=== PATIENT | male | born 1940 | race Caucasian/White ===

== ENCOUNTER 2018-09-09 13:47 | Inpatient (IN) | payer MEDICARE, OTHER ==
[2018-09-09] MEDS ORDERED: NS 0.9% 1000 ML* 2,700 ML IV ONE (13:56)
[2018-09-09] MEDS ORDERED: Albuterol/Ipratropium NEB.SOL* Albuterol 2.5 MG/Ipratropium 0.5 MG 3 ML INH ONE (14:24)
[2018-09-09] MEDS ORDERED: Albuterol/Ipratropium NEB.SOL* Albuterol 2.5 MG/Ipratropium 0.5 MG 3 ML ONE (14:25)
[2018-09-09 14:39] LABS: ABS Basophils 0.1 10^3/ul (0-0.2); ABS Eosinophils 0 10^3/ul (0-0.6); ABS Lymphocytes 0.4 10^3/ul (1.0-4.8); ABS Monocytes 0.4 10^3/ul (0-0.8); ABS Neutrophils 16.9 10^3/ul (1.5-7.7); ABS Nucleated RBC 0 10^3/ul; Eosinophil % 0 %; Hematocrit 35 % (42-52); Hemoglobin 11.4 g/dl (14.0-18.0); Mean Corpuscular HGB Conc 33 g/dl (31-36); Mean Corpuscular Hemoglobin 35 pg (27-31); Mean Corpuscular Volume 105 fL (80-94); Nucleated Red Blood Cells % 0; Platelet Count 437 10^3/ul (150-450); Red Blood Count 3.31 10^6/ul (4.00-5.40); Red Cell Distribution Width 15 % (10.5-15); White Blood Count 17.8 10^3/ul (3.5-10.8)
--- NOTE | 2018-09-09 14:40 | ED ---
Respiratory - HPI Summary HPI Summary: The patient is a 78 y/o M presenting to [facility] accompanied by with a chief complaint of upper respiratory symptoms for the last two weeks. He had dx of PNA and was being treated with abx, but he is unsure what one. Over the past 6 months, he also noticed that he gained about 15lbs, leading to bilateral edema in his ankles. He reports that he has been very short of breath, and he is not on O2 at home. He additionally c/o warm to touch skin, rhinorrhea, chest congestion, nonproductive cough, decreased appetite, and difficulty sleeping. He denies recorded fever and chills. He has hx of Afib, but he denies CHF or water on lungs. He takes a baby Aspirin daily. He also reports that when he was at the [place] recently, his blood work revealed that he is anemic. - History of Current Complaint Chief Complaint: EDShortnessOfBreath Stated Complaint: SOB Time Seen by Provider: 09/09/18 13:55 Hx Obtained From: Patient Onset/Duration: Lasting Weeks - two, Still Present Timing: Constant Initial Severity: Moderate Current Severity: Moderate Pain Intensity: 0 Character: Cough (Nonproductive) Sputum Amount: None Aggravating Factor(s): Nothing Alleviating Factor(s): Nothing Associated Signs and Symptoms: Fever - hot to touch but fever not recorded, SOB , Chest Pain with Cough, Nasal Congestion, Edema - bilateral ankles - Allergy/Home Medications Allergies/Adverse Reactions: Allergies Allergy/AdvReac Type Severity Reaction Status Date / Time codeine Allergy Intermediate itchy body Verified 09/09/18 16:21 rash Home Medications: Home Medications Amoxicillin/Clavulanate TAB* [Augmentin TAB 875*] 875 mg PO BID 09/09/18 [ History Confirmed 09/09/18] Ascorbic Acid TAB* [Vitamin C TAB*] 500 mg PO DAILY 09/09/18 [History Confirmed 09/09/18] Aspirin EC TAB* [Ecotrin EC Low Dose 81 MG*] 81 mg PO DAILY 09/09/18 [History Confirmed 09/09/18] Atenolol TAB* [Tenormin TAB* 25 MG] 25 mg PO DAILY 09/09/18 [History Confirmed 09/09/18] Carbamide Peroxide 6.5% OTIC* [DEBROX 6.5% Otic*] 5 drop BOTH EARS BID PRN 09/09 [History Confirmed 09/09/18] Cholecalciferol TAB* [Vitamin D TAB*] 3,000 units PO DAILY 09/09/18 [History Confirmed 09/09/18] Finasteride TAB* [Proscar TAB*] 5 mg PO DAILY 09/09/18 [History Confirmed ] Multivitamins/Minerals TAB* [Theragran/minerals TAB*] 1 tab PO DAILY 09/09/18 [ History Confirmed 09/09/18] Naproxen TAB* [Naprosyn 250 mg TAB*] 500 mg PO BID PRN 09/09/18 [History Confirmed 09/09/18] Simvastatin TAB(NF) [Zocor(NF)] 10 mg PO BEDTIME 09/09/18 [History Confirmed 06/18] Terazosin CAP* [Hytrin CAP*] 6 mg PO BEDTIME 09/09/18 [History Confirmed ] PMH/Surg Hx/FS Hx/Imm Hx Endocrine/Hematology History: Denies: Hx Diabetes Cardiovascular History: Reports: Other Cardiovascular Problems/Disorders - IRREGULAR HEARTBEAT History: Reports: Other Problems/Disorders - ENLARGE PROSTATE Musculoskeletal History: Reports: Hx Arthritis Sensory History: Reports: Hx Cataracts - BILATERAL, Hx Contacts or Glasses - GLASSES, Hx Glaucoma - BILATERAL Denies: Hx Hearing Aid Opthamlomology History: Reports: Hx Cataracts - BILATERAL, Hx Contacts or Glasses - GLASSES, Hx Glaucoma - BILATERAL - Surgical History Surgery Procedure, Year, and Place: 2006 [place] [facility] [place] Anesthesia Reactions: No Infectious Disease History: No Infectious Disease History: Denies: Traveled Outside the [place] in Last 30 Days - Family History Known Family History: Positive: Cardiac Disease - Social History Alcohol Use: None Hx Substance Use: No Substance Use Type: Reports: None Hx Tobacco Use: Yes Smoking Status (MU): Former Smoker Type: Cigarettes Amount Used/How Often: 5 CIGARETTES PER DAY, WHEN HE QUIT Have You Smoked in the Last Year: Yes Review of Systems Positive: Fever - hot to touch but temp not taken, Other - weight gain of 15lbs over last 6 months. Negative: Chills Negative: Erythema Positive: Nasal Discharge. Negative: Sore Throat Negative: Chest Pain Positive: Shortness Of Breath, Cough - nonproductive, Other - chest congestion Positive: Other - decreased appetite. Negative: Abdominal Pain, Vomiting, Nausea Negative: dysuria, hematuria Positive: Edema - bilateral ankles. Negative: Myalgia Negative: Rash Neurological: Other - POSITIVE: difficulty sleeping;NEGATIVE: dizziness All Other Systems Reviewed And Are Negative: Yes Physical Exam - Summary Physical Exam Summary: Constitutional: Well-developed, Well-nourished, Alert. (-) Distressed Skin: Warm, Dry HENT: Normocephalic; Atraumatic Eyes: Conjunctiva normal Neck: Musculoskeletal ROM normal neck. (-) JVD, (-) Stridor, (-) Tracheal deviation Cardio: Rhythm regular, rate normal, Heart sounds normal; Intact distal pulses; The pedal pulses are 2+ and symmetric. Radial pulses are 2+ and symmetric. (-) Murmur Pulmonary/Chest wall: Effort normal. (-) Respiratory distress, (-) Wheezes, (+) Rales, Diminished breath sounds Abd: Soft, (-) epigastric tenderness, (-) Distension, (-) Guarding, (-) Rebound Musculoskeletal: 1+ Pitting edema in bilateral ankles Lymph: (-) Cervical adenopathy Neuro: Alert, Oriented x3 Psych: Mood and affect Normal Triage Information Reviewed: Yes Vital Signs On Initial Exam: Initial Vitals Temp Pulse Resp BP Pulse Ox 98.6 F 116 20 145/64 96 09/09/18 13:51 09/09/18 13:51 09/09/18 13:51 09/09/18 13:51 09/09/18 13:51 Vital Signs Reviewed: Yes Diagnostics - Vital Signs Vital Signs Temp Pulse Resp BP Pulse Ox 09/09/18 14:04 128 127/82 98 09/09/18 14:03 124 98 09/09/18 13:51 98.6 F 116 20 145/64 96 - Laboratory Result Diagrams: 09/09/18 14:27 09/09/18 14:27 Lab Statement: Any lab studies that have been ordered have been reviewed, and results considered in the medical decision making process. - Radiology CXR Radiology Interpretation Completed By: Radiologist Summary of Radiographic Findings: Appearance of the chest x-rays is most consistent with pulmonary edema, likely with bibasilar pleural effusions. ED physician has reviewed this report. - EKG 1413 Cardiac Rate: Other Rate - 122 BPM EKG Rhythm: Atrial Fibrillation Summary of EKG Findings: No STEMI. Re-Evaluation - Re-Evaluation First Eval Re-Evaluation Time: 15:18 Change: Improved Comment: He is not currently experiencing any chest pain. Disposition - Course Course Of Treatment: The patient is a 78 y/o M presenting to [facility] accompanied by with a chief complaint of upper respiratory symptoms for the last two weeks. He had dx of PNA and was being treated with abx, but he is unsure what one. Over the past 6 months, he also noticed that he gained about 15lbs, leading to bilateral edema in his ankles. He reports that he has been very short of breath, and he is not on O2 at home. He additionally c/o warm to touch skin, rhinorrhea, chest congestion, nonproductive cough, decreased appetite, and difficulty sleeping. He denies recorded fever and chills. He has hx of Afib , but he denies CHF or water on lungs. He takes a baby Aspirin daily. He also reports that when he was at the [place] recently, his blood work revealed that he is anemic. Upon physical exam, the patient exhibits rales, diminished breath sounds , and +1 pitting edema bilateral ankles. I spoke with Dr. Shepherd, cardiology, who suggests that the patient be administered Lasix, Aspirin, and in hospital services. In the ED course, the patient was also administered Ns, NTG, Lopressor , Duoneb, and Heparin. Blood work reveals no significant changes. EKG reveals Afib. CXR reveals pulmonary edema with bibasilar pleural effusions. Upon re- eval at 1518, the patient is not experiencing any CP. This allows me to suspect that the symptoms are perhaps PNA related mediated CHF. I consulted with Dr. French, hospitalist, who accepts the patient for admission at 1500. He is diagnosed with CHF and acute coronary syndrome. Patient agrees with this plan and understands the need for admission at this time. - Diagnoses Provider Diagnoses: CHF (congestive heart failure), Acute coronary syndrome - Physician Notifications Discussed Care Of Patient With: Wade French - hospitalist Time Discussed With Above Provider: 15:00 Instructed by Provider To: Other - I spoke with Dr. French, who accepts the patient for admission. Discharge - Sign-Out/Discharge Documenting (check all that apply): Patient Departure - Patient will [place] [facility] [place] further care by Dr. French. - Discharge Plan Condition: Stable Disposition: ADMITTED TO [facility] - Billing Disposition and Condition Condition: STABLE Disposition: Admitted to [facility] - Attestation Statements Document Initiated by Julissae: Yes Documenting Scribe: Judy Jean Provider For Whom Chris is Documenting (Include Credential): Dr. Carlos Grimes MD Scribe Attestation: Judy Diehl scribed for Dr. Carlos Grimes MD on 09/09/18 at 2114. Scribe Documentation Reviewed: Yes Provider Attestation: The documentation as recorded by the Judy sow accurately reflects the service I personally performed and the decisions made by me, Dr. Carlos Grimes MD Status of Scribe Document: Viewed
[2018-09-09 14:50] LABS: Activated Partial Thrombo Time 27.1 seconds (26.0-36.3); INR 1.21 (0.77-1.02)
[2018-09-09 14:58] LABS: Albumin 4.1 g/dL (3.2-5.2); Albumin/Globulin Ratio 1.5 (1-3); BUN/Creatinine Ratio 33.3 (8-20); Calcium 9.1 mg/dL (8.6-10.3); EGFR Non-African American 44.5 (>60); Globulin 2.8 g/dL (2-4); Potassium 4.7 mmol/L (3.5-5.0); Total Bilirubin 0.8 mg/dL (0.2-1.0); Total Protein 6.9 g/dL (6.4-8.9)
[2018-09-09] MEDS ORDERED: Aspirin 81 mg CHEW TAB* 81 MG TAB.CHEW PO ONE (15:06)
[2018-09-09] MEDS ORDERED: Metoprolol Tartrate IV* 1 MG/ML 5 ML VIAL IV ONE (15:06)
[2018-09-09] MEDS ORDERED: Nitroglycerin 0.2 MG/HR PATCH* (5 MG) TRANSDERM ONE (15:06)
[2018-09-09] MEDS ORDERED: Furosemide IV* 10 MG/ML VIAL (40 MG) IV SLOW PU ONE (15:23)
[2018-09-09] MEDS ORDERED: Furosemide IV* 10 MG/ML VIAL (40 MG) ONE (15:24)
[2018-09-09] MEDS ORDERED: Heparin DRIP 25,000 UNITS(*) 25,000 UNITS/500 ML BAG IV SCH (16:15)
[2018-09-09] MEDS ORDERED: Metoprolol Tartrate TAB* 25 MG PO ONE (16:50)
[2018-09-09] MEDS ORDERED: Diltiazem IV VIAL* 125 MG in NS 0.9% 100 ML* 100 ML IV SCH (17:30)
[2018-09-09] MEDS ORDERED: NS 0.9% 100 ML* 100 ML ONE (17:39)
[2018-09-09] MEDS: Heparin DRIP 25,000 UNITS(*) 25,000 UNITS/500 ML BAG IV SCH (18:12)
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
[2018-09-09] MEDS: Terazosin CAP* 5 MG PO SCH (20:18)
[2018-09-09] MEDS: Furosemide IV* 10 MG/ML VIAL (40 MG) IV SCH ×2 (20:18→20:31)
[2018-09-09] MEDS: Terazosin CAP* 1 MG PO SCH (20:18)
[2018-09-09] MEDS: Metoprolol Succinate XL TAB* 25 MG PO SCH (20:18)
[2018-09-09] MEDS: Atorvastatin* 80 MG TAB PO SCH (20:18)
[2018-09-09] MEDS ORDERED: Atorvastatin* 10 MG TAB PO SCH (21:00)
[2018-09-09] MEDS ORDERED: Furosemide IV* 10 MG/ML VIAL (40 MG) IV SCH (21:00)
[2018-09-09 21:24] LABS: Urine Appearance Clear; Urine Bacteria Absent (Absent); Urine Bilirubin Negative (Negative); Urine Blood Negative (Negative); Urine Color Yellow; Urine Glucose Negative (Negative); Urine Ketones Negative (Negative); Urine Nitrite Negative (Negative); Urine Protein Negative (Negative); Urine Red Blood Cell Trace(0-2/hpf) (Absent); Urine Specific Gravity 1.011 (1.010-1.030); Urine Urobilinogen Negative (Negative); Urine White Blood Cell Trace(0-5/hpf) (Absent)
[2018-09-10] MEDS ORDERED: Heparin VIAL(*) 5000 UNITS/ML VIAL (FIVE THOUSAND) ONE (01:02)
[2018-09-10] MEDS: Heparin VIAL(*) 5000 UNITS/ML VIAL (FIVE THOUSAND) IV PRN ×2 (01:05→14:58)
[2018-09-10 06:55] LABS: Hematocrit 31 % (42-52); Mean Corpuscular HGB Conc 33 g/dl (31-36); Mean Corpuscular Hemoglobin 34 pg (27-31); Mean Corpuscular Volume 104 fL (80-94); Mean Platelet Volume 7.6 fL (7.4-10.4); Platelet Count 374 10^3/ul (150-450); Red Blood Count 2.94 10^6/ul (4.00-5.40); Red Cell Distribution Width 15 % (10.5-15); White Blood Count 17.9 10^3/ul (3.5-10.8)
[2018-09-10 07:03] LABS: ALT 28 U/L (7-52); AST 56 U/L (13-39); Albumin 3.1 g/dL (3.2-5.2); Albumin/Globulin Ratio 1.1 (1-3); Alkaline Phosphatase 71 U/L (34-104); Anion Gap 7 mmol/L (2-11); BUN/Creatinine Ratio 36.7 (8-20); Blood Urea Nitrogen 54 mg/dL (6-24); CO2 Carbon Dioxide 25 mmol/L (22-32); Calcium 8.1 mg/dL (8.6-10.3); Chloride 108 mmol/L (101-111); Cholesterol 115 mg/dL; EGFR Non-African American 46.6 (>60); Globulin 2.7 g/dL (2-4); Glucose 139 mg/dL (70-100); HDL Cholesterol 36.5 mg/dL; LDL Cholesterol 64 mg/dL; Magnesium 2.4 mg/dL (1.9-2.7); Sodium 140 mmol/L (135-145); Total Protein 5.8 g/dL (6.4-8.9); Triglycerides 72 mg/dL
[2018-09-10 07:05] LABS: INR 1.21 (0.77-1.02)
[2018-09-10 07:22] LABS: Activated Partial Thrombo Time 135.1 seconds (26.0-36.3)
[2018-09-10 07:36] LABS: TSH (Thyroid Stimulating Horm) 1.33 mcIU/mL (0.34-5.60)
[2018-09-10 07:48] LABS: Folate > 20.00 ng/mL (>3.99)
[2018-09-10] MEDS ORDERED: Perflutren Lipid Microsphere* 3 ML VIAL ONE (08:23)
[2018-09-10] MEDS ORDERED: Nitroglycerin 0.2 MG/HR PATCH* (5 MG) TRANSDERM SCH (09:00)
[2018-09-10] MEDS ORDERED: Atenolol TAB* 25 MG PO SCH (09:00)
[2018-09-10] MEDS: Metoprolol Succinate XL TAB* 25 MG PO SCH ×2 (09:11→20:05)
[2018-09-10] MEDS: Finasteride TAB* 5 MG PO SCH (09:11)
[2018-09-10] MEDS: Aspirin TAB* 325 MG PO SCH (09:11)
[2018-09-10] MEDS: Furosemide IV* 10 MG/ML VIAL (40 MG) IV SCH ×2 (10:26→20:05)
--- NOTE | 2018-09-10 11:38 | ECHO ---
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 fib, HLD, former smoker Technical Comments: The study quality is fair. The study is technically limited due to patient body habitus. The study is technically limited due to the patient's smoking history. Completed at 0915. Left Ventricle: The left ventricular chamber size is normal. Mild concentric left ventricular hypertrophy is observed. There are multiple regional wall motion abnormalities. There is severely decreased left ventricular systolic function. The estimated ejection fraction is 25-30%. Abnormal left ventricular diastolic function is observed. The mid anterior, mid anterolateral, mid inferolateral, mid inferoseptal, and apical anterior wall segments are hypokinetic (score 2). The apical septal, apical lateral, and apical inferior wall segments are akinetic (score 3). Overall wallmotion score index is 2.10 Left Atrium: The left atrium is moderate to severely dilated. Right Ventricle: The right ventricular chamber size and systolic function are within normal limits. Right Atrium: The right atrium is moderately dilated. Aortic Valve: The aortic valve structure is not well visualized. The aortic valve leaflets are mildly thickened. There is evidence of aortic sclerosis without stenosis. There is no evidence of aortic regurgitation. Mitral Valve: Mild mitral annular calcification present. The mitral valve leaflets are mildly thickened. There is moderate mitral regurgitation. that is functional/secondary There is no evidence of mitral stenosis. Tricuspid Valve: The tricuspid valve leaflets are normal. There is mild tricuspid regurgitation. There is evidence of moderate pulmonary hypertension. There is no tricuspid stenosis. Pulmonic Valve: The pulmonic valve structure is not well visualized. There is no evidence of pulmonic regurgitation. There is no pulmonic stenosis. Pericardium: There is no significant pericardial effusion. A left pleural effusion is present. Aorta: There is mild dilatation of the ascending aorta. The aortic arch is not well visualized. There is no dilation of the aortic root. Pulmonary Artery: The main pulmonary artery is not well visualized. Venous: The inferior vena cava is dilated. There is no change in the dimension of the inferior vena cava with respiration consistent with markedly increased right atrial pressure. Contrast: Definity was used to optimize study. A total of 3 ml of diluted Definity was given IV to enhance endocardial border definition. Conclusions The left ventricular chamber size is normal. Mild concentric left ventricular hypertrophy is observed. There is severely decreased left ventricular systolic function. There are multiple regional wall motion abnormalities as described within report The estimated ejection fraction is 25-30% best appreciated on definity images The left atrium is moderate to severely dilated. The right ventricular chamber size and systolic function are within normal limits. There is moderate mitral regurgitation that is functional/secondary There is evidence of moderate pulmonary hypertension. A pleural effusion is present. Definity was used to optimize study. None prior available for comparison at time of interpretation Measurements Name Value Normal Range RVIDd (AP) 2D 3.7 cm (0.9 - 2.6) RVDdMajor (2D) 3.5 cm (2.2 - 4.4) RAd ISD 4CH 6.7 cm (3.4 - 4.9) RA (A4C)W 4.4 cm (2.9 - 4.6) IVSd (2D) 1.2 cm (0.6 - 1) LVPWd (2D) 1.2 cm (0.6 - 1) LVIDd (2D) 5.3 cm (3.6 - 5.4) LVIDs (2D) 4.1 cm - LV FS (2D) 23 % (25 - 45) Aortic Annulus 2 cm (1.4 - 2.6) Ao root diameter (2D) 3.4 cm (2.1 - 3.5) Ascending Ao 3.6 cm (2.1 - 3.4) LA dimension (AP) 2D 5.4 cm (2.3 - 3.8) LAd ISD 4CH 6.7 cm (2.9 - 5.3) LA ISD 4CH W 4.8 cm (2.5 - 4.5) Name Value Normal Range LA ESV BP (A/L) index 44.6 ml/m2 - Name Value Normal Range MV E-wave Vmax 1 m/sec - MV deceleration time 150 msec - LV septal e' Vmax 0.05 m/sec - LV lateral e' Vmax 0.08 m/sec - LV E:e' septal ratio 20 ratio - LV E:e' lateral ratio 12.5 ratio - Name Value Normal Range AV Vmax 0.98 m/sec - AV VTI 16.2 cm - AV peak gradient 4 mmHg - AV mean gradient 2 mmHg - LVOT Vmax 0.78 m/sec - LVOT VTI 13.3 cm - LVOT peak gradient 2 mmHg - LVOT mean gradient 1 mmHg - Name Value Normal Range TR Vmax 3.3 m/sec - TR peak gradient 44 mmHg - RAP 15 mmHg - RVSP 59 mmHg - IVC diameter 2.4 cm - Name Value Normal Range PV Vmax 0.49 m/sec - Wallmotion BAS Normal BA Not Seen BAL Not Seen NATALIE Not Seen BI Not Seen BIS Not Seen MAS Normal MA Hypokinetic MAL Hypokinetic MIL Hypokinetic MT Not Seen MIS Hypokinetic Akinetic AA Hypokinetic AL Akinetic AI Akinetic APEX Akinetic
[2018-09-10] MEDS ORDERED: Furosemide IV* 10 MG/ML VIAL (40 MG) IV ONE (12:12)
--- NOTE | 2018-09-10 12:41 | PN ---
Subjective Date of Service: 09/10/18 Interval History: f/u NH, systolic HF, ICM Remains markedly volume overloaded Tachypneic with conversation, no symptoms at rest suboptimal UOP States he has known anemia, awaiting [facility] Medications Active Medications: Aspirin (Aspirin Tab*) 325 mg PO DAILY [facility] Last Admin: 09/10/18 09:11 Dose: 325 mg Atorvastatin Calcium (Lipitor*) 80 mg PO BEDTIME [facility] Last Admin: 09/09/18 20:18 Dose: 80 mg Finasteride (Proscar Tab*) 5 mg PO DAILY [facility] Last Admin: 09/10/18 09:11 Dose: 5 mg Furosemide (Lasix Iv*) 40 mg IV BID [facility] Last Admin: 09/10/18 10:26 Dose: 40 mg Heparin Sodium (Porcine) (Heparin Vial(*)) 0 units IV .BOLUS PRN PRN Reason: HEPARIN DRIP PROTOCOL Last Admin: 09/10/18 01:05 Dose: 4,000 units Heparin Sodium/Dextrose (Heparin Drip 25,000 Units(*)) 25,000 units in 500 mls @ 0 mls/hr IV PER RATE [facility]; Protocol Last Admin: 09/09/18 18:12 Dose: 20 mls/hr Isosorbide Dinitrate (Isordil Tab*) 10 mg PO TID [facility] Metoprolol Succinate (Toprol Xl Tab*) 25 mg PO BID [facility] Last Admin: 09/10/18 09:11 Dose: 25 mg Nicotine Polacrilex (Nicotine Lozenge*) 2 mg MT Q2H PRN PRN Reason: CRAVINGS Terazosin HCl (Hytrin Cap*) 1 mg PO BEDTIME [facility] Last Admin: 09/09/18 20:18 Dose: 1 mg Terazosin HCl (Hytrin Cap*) 5 mg PO BEDTIME [facility] Last Admin: 09/09/18 20:18 Dose: 5 mg Objective Vital Signs: Temp Pulse Resp BP Pulse Ox 97.9 F 98 23 112/81 98 09/10/18 11:37 09/10/18 12:01 09/10/18 12:01 09/10/18 12:00 09/10/18 12:01 Oxygen Devices in Use Now: Nasal Cannula Appearance: not toxic appearing, conversant Ears/Nose/Mouth/Throat: Clear Oropharnyx Neck: Trachea Midline, - - uncertain jvp Respiratory: - - mild increased work of breathing and tachypnea, decreased bs bases Cardiovascular: - - irregularly irregular, tachcyardic, 1+ systolic murmur apex , uncertain jvp Abdominal: NL Sounds; No Tenderness; No Distention Extremities: No Clubbing, Cyanosis, - - 2+ pitting edema legs Skin: No Rash or Ulcers Neurological: Alert and Oriented x 3 Laboratory Results: 09/10/18 06:30 09/10/18 06:30 INR (Anticoag Therapy) 1.21 (0.77-1.02) H 09/10/18 06:30 APTT 135.1 seconds (26.0-36.3) H* 09/10/18 06:30 Total Bilirubin 0.60 mg/dL (0.2-1.0) 09/10/18 06:30 AST 56 U/L (13-39) H 09/10/18 06:30 ALT 28 U/L (7-52) 09/10/18 06:30 Alkaline Phosphatase 71 U/L (34-104) 09/10/18 06:30 B-Natriuretic Peptide 1285 pg/mL (<=100) H 09/09/18 14:27 Total Protein 5.8 g/dL (6.4-8.9) L 09/10/18 06:30 Albumin 3.1 g/dL (3.2-5.2) L 09/10/18 06:30 Globulin 2.7 g/dL (2-4) 09/10/18 06:30 Albumin/Globulin Ratio 1.1 (1-3) 09/10/18 06:30 Triglycerides 72 mg/dL 09/10/18 06:30 Cholesterol 115 mg/dL 09/10/18 06:30 LDL Cholesterol 64 mg/dL 09/10/18 06:30 HDL Cholesterol 36.5 mg/dL 09/10/18 06:30 TSH 1.33 mcIU/mL (0.34-5.60) 09/10/18 06:30 09/09/18 09/09/18 09/10/18 14:27 19:10 06:30 Troponin I 5.33 H* 6.24 H* 8.06 H* b12, folic acid normal hgba1c < 4 Diagnostic Imaging: cxr 09/09/2018: pulmonary edema, b/l pleural effusions Renal US 09/10/2018. 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 NSTEMI - pain free 3. Atrial fibrillation, chronic 4. Renal insufficiency, uncertain acute or chronic 5. Macrocytic anemia - Continue aspirin daily - Continue heparin gtt - Hold off on second anti-platelet for now - Continue intensive dose statin - Continue IV diuresis (needs much more - another 40 mg IV x 1 ordered now), check and replace electrolytes - Continue toprol 25 mg po bid, HR should improve with better diuresis - Change topical nitrates to isordil 10 mg po tid (ordered) - Hold off on AceI/ARB for now - [facility] - Pending above evaluation and further medical stabilization and improvement of heart failure patient would likely eventually benefit from cardiac catheterization with intent for revascularization Thank you for allowing me to participate in the cardiovascular care of this patient. Please do not hesitate to contact me with questions or concerns.
[2018-09-10] MEDS: NICOTINE 4 MG MT PRN (13:33)
[2018-09-10] MEDS: Isosorbide Dinitrate TAB* 10 MG PO SCH ×2 (13:33→20:05)
[2018-09-10] MEDS ORDERED: Digoxin IV* 0.5 MG/2 ML AMP (0.25 MG/ML) IV SLOW PU ONE (15:13)
--- NOTE | 2018-09-10 15:51 | PN ---
Subjective Date of Service: 09/10/18 Interval History: Pt seen and examined. Meds and labs reviewed. CC: Soft tissue discolored mass cephalad to IV site ROS: Denied HU/dizziness, F/C, N/V, CP, SOB, increased cough, sputum production , abd pain, diarrhea, constipation, dysuria, myalgias, arthralgias, throat pain , and new skin lesions. The rest of the 14 point ROS are unremarkable. PHYSICAL EXAM: GEN APPEARANCE: Awake, not in acute distress HEENT: NC/AT, PERRLA, moist oral mucosa, (-) throat erythema NECK: Soft, supple, (-) cervical LAD, (-)JVD HEART: S1S2 WNL, RRR, No MRG CHEST: CTA, BL, GAE, No W/R/R ABD: Soft, ND/NT, NABS 4x Q EXT: No C/C/E SKIN: Warm to touch PSYCH: No active psychosis, hallucinations, depression, SI/HI Objective Active Medications: Aspirin (Aspirin Tab*) 325 mg PO DAILY [facility] Last Admin: 09/10/18 09:11 Dose: 325 mg Atorvastatin Calcium (Lipitor*) 80 mg PO BEDTIME [facility] Last Admin: 09/09/18 20:18 Dose: 80 mg Finasteride (Proscar Tab*) 5 mg PO DAILY [facility] Last Admin: 09/10/18 09:11 Dose: 5 mg Furosemide (Lasix Iv*) 40 mg IV BID [facility] Last Admin: 09/10/18 10:26 Dose: 40 mg Heparin Sodium (Porcine) (Heparin Vial(*)) 0 units IV .BOLUS PRN PRN Reason: HEPARIN DRIP PROTOCOL Last Admin: 09/10/18 14:58 Dose: 2,000 units Heparin Sodium/Dextrose (Heparin Drip 25,000 Units(*)) 25,000 units in 500 mls @ 0 mls/hr IV PER RATE [facility]; Protocol Last Admin: 09/09/18 18:12 Dose: 20 mls/hr Isosorbide Dinitrate (Isordil Tab*) 10 mg PO TID [facility] Last Admin: 09/10/18 13:33 Dose: 10 mg Metoprolol Succinate (Toprol Xl Tab*) 25 mg PO BID [facility] Last Admin: 09/10/18 09:11 Dose: 25 mg Nicotine Polacrilex (Nicotine Lozenge*) 2 mg MT Q2H PRN PRN Reason: CRAVINGS Last Admin: 09/10/18 13:33 Dose: 2 mg Terazosin HCl (Hytrin Cap*) 1 mg PO BEDTIME [facility] Last Admin: 09/09/18 20:18 Dose: 1 mg Terazosin HCl (Hytrin Cap*) 5 mg PO BEDTIME [facility] Last Admin: 09/09/18 20:18 Dose: 5 mg Vital Signs - 8 hr 09/10/18 09/10/18 09/10/18 07:48 08:00 08:01 Temperature 97.6 F Pulse Rate 102 94 Respiratory 20 23 Rate Blood Pressure 109/78 (mmHg) O2 Sat by Pulse 98 97 98 Oximetry 09/10/18 09/10/18 09/10/18 08:30 09:00 09:01 Temperature Pulse Rate 102 110 109 Respiratory 19 20 19 Rate Blood Pressure 120/70 108/82 (mmHg) O2 Sat by Pulse 97 98 99 Oximetry 09/10/18 09/10/18 09/10/18 10:00 10:56 11:00 Temperature Pulse Rate 101 124 Respiratory 22 18 17 Rate Blood Pressure (mmHg) O2 Sat by Pulse 97 97 Oximetry 09/10/18 09/10/18 09/10/18 11:01 11:30 11:37 Temperature 97.9 F Pulse Rate 119 Respiratory 21 18 Rate Blood Pressure 123/78 118/73 (mmHg) O2 Sat by Pulse 96 Oximetry 09/10/18 09/10/18 09/10/18 12:00 12:01 12:30 Temperature Pulse Rate 103 98 115 Respiratory 36 23 21 Rate Blood Pressure 112/81 122/80 (mmHg) O2 Sat by Pulse 98 98 92 Oximetry 09/10/18 09/10/18 09/10/18 13:00 13:01 13:30 Temperature Pulse Rate 104 102 115 Respiratory 41 27 28 Rate Blood Pressure 110/72 115/77 (mmHg) O2 Sat by Pulse 93 93 98 Oximetry 09/10/18 09/10/18 09/10/18 14:00 14:01 14:30 Temperature Pulse Rate 143 108 106 Respiratory 30 32 26 Rate Blood Pressure 107/70 96/70 (mmHg) O2 Sat by Pulse 85 97 97 Oximetry 09/10/18 09/10/18 09/10/18 15:00 15:01 15:42 Temperature Pulse Rate 107 114 114 Respiratory 33 23 Rate Blood Pressure 118/85 (mmHg) O2 Sat by Pulse 99 97 Oximetry Oxygen Devices in Use Now: Nasal Cannula Result Diagrams: 09/10/18 06:30 09/10/18 06:30 Microbiology and Other Data: Microbiology 09/09/18 14:24 Aerobic Blood Culture - Preliminary Blood Venous No Growth Day 1 09/09/18 14:23 Blood Culture - Preliminary Blood Venous No Growth Day 1 09/09/18 18:20 Nasal Screen MRSA (PCR) - Final Nasal Mrsa Not Detected 09/09/18 14:27 Influenza Types A,B Antigen - Final Nasal Specimen received for Influenza A/B Molecular testing Assess/Plan/Problems-Billing Assessment: - Patient Problems (1) NSTEMI (non-ST elevated myocardial infarction) Current Visit: Yes Status: Acute Code(s): I21.4 - NON-ST ELEVATION (NSTEMI) MYOCARDIAL INFARCTION SNOMED Code(s): 06869082 Comment: -Continue ASA, heparin gtt, statins, and Toprol -Now on Isordil -Hold off on ACEI for now; likely prescribe prior to D/C given EF 25-30%; will await further guidance from Cards - [facility]waiting [facility] - Pending above evaluation and further medical stabilization and improvement of heart failure patient would likely eventually benefit from cardiac catheterization with intent for revascularization (2) CHF exacerbation Current Visit: Yes Status: Acute Code(s): I50.9 - HEART FAILURE, UNSPECIFIED SNOMED Code(s): 58162686 Comment: -Both systolic and diastolic dysfunction -Continue Lasix -Pt still requires 3L NC and does not have O2 at home -Continue heart healthy diet -Will add low sodium diet to above -ABG not suggestive of obstructive disease despite significant smoking history -CXR consistent w/CHF (3) A-fib Current Visit: Yes Status: Acute Code(s): I48.91 - UNSPECIFIED ATRIAL FIBRILLATION SNOMED Code(s): 31408283 Comment: #A. fib w/RVR -Continue Metoprolol -Pt on Heparin gtt (4) Superficial venous thrombosis of arm Current Visit: Yes Status: Acute Code(s): I82.619 - ACUTE EMBOLISM AND THROMBOSIS OF SUPERFIC VN UNSP UP EXTREM SNOMED Code(s): 824237932 Comment: -Located in cephalic vein despite heparin gtt -Likely from thrombophlebitis due to IV -IV removed and for warm compress -Given full anticoagulation data for such cases is equivocal, will check for Doppler U/S to eval for DVT, however, given pt has CHADS-vasc = 3, will likely need DOACs/PO anticoagulation on D/C (5) BPH (benign prostatic hyperplasia) Current Visit: Yes Status: Acute Code(s): N40.0 - BENIGN PROSTATIC HYPERPLASIA WITHOUT LOWER URINRY TRACT SYMP SNOMED Code(s): 337546508 Comment: -Continue Finasteride and Terazosin (6) DVT prophylaxis Current Visit: Yes Status: Acute Code(s): ATK8763 - SNOMED Code(s): 833620272 Comment: -As above -On Heparin gtt Status and Disposition: -As above
[2018-09-10] MEDS: Heparin DRIP 25,000 UNITS(*) 25,000 UNITS/500 ML BAG IV SCH (17:24)
[2018-09-10] MEDS: Terazosin CAP* 1 MG PO SCH (20:05)
[2018-09-10] MEDS: Terazosin CAP* 5 MG PO SCH (20:05)
[2018-09-10] MEDS: Atorvastatin* 80 MG TAB PO SCH (20:05)
[2018-09-10] MEDS ORDERED: Nitro Patch/OINT Remove PATCH OFF SCH (21:00)
[2018-09-10] MEDS ORDERED: Heparin VIAL(*) 5000 UNITS/ML VIAL (FIVE THOUSAND) IV PRN (21:29)
[2018-09-11 05:53] LABS: Hematocrit 29 % (42-52); Hemoglobin 9.7 g/dl (14.0-18.0); Mean Corpuscular HGB Conc 33 g/dl (31-36); Mean Corpuscular Hemoglobin 34 pg (27-31); Mean Corpuscular Volume 103 fL (80-94); Mean Platelet Volume 7.1 fL (7.4-10.4); Platelet Count 322 10^3/ul (150-450); Red Blood Count 2.82 10^6/ul (4.00-5.40); Red Cell Distribution Width 14 % (10.5-15); White Blood Count 13.1 10^3/ul (3.5-10.8)
[2018-09-11 06:11] LABS: Albumin 3.1 g/dL (3.2-5.2); Albumin/Globulin Ratio 1.1 (1-3); BUN/Creatinine Ratio 43.4 (8-20); Calcium 8.2 mg/dL (8.6-10.3); EGFR Non-African American 48.1 (>60); Globulin 2.7 g/dL (2-4); Magnesium 2.3 mg/dL (1.9-2.7); Phosphorus 4.4 mg/dL (2.5-5.0); Potassium 3.7 mmol/L (3.5-5.0); Total Bilirubin 0.9 mg/dL (0.2-1.0); Total Protein 5.8 g/dL (6.4-8.9)
[2018-09-11] MEDS: Finasteride TAB* 5 MG PO SCH (08:05)
[2018-09-11] MEDS: Aspirin TAB* 325 MG PO SCH (08:05)
[2018-09-11] MEDS: Furosemide IV* 10 MG/ML VIAL (40 MG) IV SCH ×2 (08:05→20:22)
[2018-09-11] MEDS: Isosorbide Dinitrate TAB* 10 MG PO SCH ×3 (08:05→20:22)
[2018-09-11] MEDS: Metoprolol Succinate XL TAB* 25 MG PO SCH (08:05)
[2018-09-11] MEDS ORDERED: Digoxin IV* 0.5 MG/2 ML AMP (0.25 MG/ML) IV SLOW PU ONE (10:00)
[2018-09-11] MEDS ORDERED: Potassium Chlor TAB* 20 MEQ TAB.ER PO ONE ×2 (10:19→10:23)
[2018-09-11] MEDS ORDERED: Digoxin IV* 0.5 MG/2 ML AMP (0.25 MG/ML) IV ONE (10:23)
[2018-09-11] MEDS ORDERED: Furosemide IV* 10 MG/ML VIAL (40 MG) IV ONE ×2 (10:23→11:55)
[2018-09-11] MEDS: NICOTINE 4 MG MT PRN (11:43)
--- NOTE | 2018-09-11 12:48 | PN ---
Subjective Date of Service: 09/11/18 Interval History: Pt seen and examined. Meds and labs reviewed. CC: N/A ROS: Denied HU/dizziness, F/C, N/V, CP, SOB, increased cough, sputum production , abd pain, diarrhea, constipation, dysuria, myalgias, arthralgias, throat pain , and new skin lesions. The rest of the 14 point ROS are unremarkable. PHYSICAL EXAM: GEN APPEARANCE: Awake, not in acute distress HEENT: NC/AT, PERRLA, moist oral mucosa, (-) throat erythema NECK: Soft, supple, (-) cervical LAD HEART: S1S2 WNL, RRR, No MRG CHEST: CTA, BL, GAE, No W/R/R ABD: Soft, ND/NT, NABS 4x Q EXT: No C/C/(+)RLE +1 edema, chronic due to previous knee Sx SKIN: Warm to touch PSYCH: No active psychosis, hallucinations, depression, SI/HI Objective Active Medications: Aspirin (Aspirin Tab*) 325 mg PO DAILY [facility] Last Admin: 09/11/18 08:05 Dose: 325 mg Atorvastatin Calcium (Lipitor*) 80 mg PO BEDTIME [facility] Last Admin: 09/10/18 20:05 Dose: 80 mg Finasteride (Proscar Tab*) 5 mg PO DAILY [facility] Last Admin: 09/11/18 08:05 Dose: 5 mg Furosemide (Lasix Iv*) 40 mg IV BID [facility] Last Admin: 09/11/18 08:05 Dose: 40 mg Heparin Sodium (Porcine) (Heparin Vial(*)) 0 units IV .BOLUS PRN PRN Reason: HEPARIN DRIP PROTOCOL Last Admin: 09/10/18 14:58 Dose: 2,000 units Heparin Sodium/Dextrose (Heparin Drip 25,000 Units(*)) 25,000 units in 500 mls @ 0 mls/hr IV PER RATE [facility]; Protocol Last Admin: 09/10/18 17:24 Dose: 26 mls/hr Isosorbide Dinitrate (Isordil Tab*) 10 mg PO TID [facility] Last Admin: 09/11/18 08:05 Dose: 10 mg Metoprolol Succinate (Toprol Xl Tab*) 25 mg PO BID [facility] Last Admin: 09/11/18 08:05 Dose: 25 mg Nicotine Polacrilex (Nicotine Lozenge*) 2 mg MT Q2H PRN PRN Reason: CRAVINGS Last Admin: 09/10/18 13:33 Dose: 2 mg Terazosin HCl (Hytrin Cap*) 1 mg PO BEDTIME [facility] Last Admin: 09/10/18 20:05 Dose: 1 mg Terazosin HCl (Hytrin Cap*) 5 mg PO BEDTIME [facility] Last Admin: 09/10/18 20:05 Dose: 5 mg Vital Signs - 8 hr 09/11/18 09/11/18 09/11/18 03:00 03:01 03:14 Temperature Pulse Rate 92 94 Respiratory 15 22 16 Rate Blood Pressure 117/72 (mmHg) O2 Sat by Pulse 96 97 Oximetry 09/11/18 09/11/18 09/11/18 04:00 04:01 04:10 Temperature 97.0 F Pulse Rate 92 89 Respiratory 14 17 16 Rate Blood Pressure 101/68 (mmHg) O2 Sat by Pulse 97 97 Oximetry 09/11/18 09/11/18 09/11/18 05:00 05:01 05:22 Temperature Pulse Rate 97 102 Respiratory 17 16 18 Rate Blood Pressure 109/69 (mmHg) O2 Sat by Pulse 97 97 Oximetry 09/11/18 09/11/18 09/11/18 06:00 06:01 07:00 Temperature Pulse Rate 98 96 99 Respiratory 16 9 18 Rate Blood Pressure 111/63 129/67 (mmHg) O2 Sat by Pulse 95 97 96 Oximetry 09/11/18 09/11/18 09/11/18 07:01 07:14 07:26 Temperature Pulse Rate 99 Respiratory 20 15 Rate Blood Pressure (mmHg) O2 Sat by Pulse 96 96 Oximetry 09/11/18 07:39 Temperature 98.1 F Pulse Rate Respiratory Rate Blood Pressure (mmHg) O2 Sat by Pulse Oximetry Oxygen Devices in Use Now: Nasal Cannula Result Diagrams: 09/11/18 05:44 09/11/18 05:44 Microbiology and Other Data: Microbiology 09/09/18 14:24 Aerobic Blood Culture - Preliminary Blood Venous No Growth Day 1 09/09/18 14:23 Blood Culture - Preliminary Blood Venous No Growth Day 1 09/09/18 18:20 Nasal Screen MRSA (PCR) - Final Nasal Mrsa Not Detected 09/09/18 14:27 Influenza Types A,B Antigen - Final Nasal Specimen received for Influenza A/B Molecular testing Assess/Plan/Problems-Billing Assessment: - Patient Problems (1) NSTEMI (non-ST elevated myocardial infarction) Current Visit: Yes Status: Acute Code(s): I21.4 - NON-ST ELEVATION (NSTEMI) MYOCARDIAL INFARCTION SNOMED Code(s): 55631203 Comment: -Continue ASA, heparin gtt, statins, and Toprol -Now on Isordil -Hold off on ACEI for now; likely prescribe prior to D/C given EF 25-30%; will await further guidance from Cards -Defer further reccs from Cards - Pending above evaluation and further medical stabilization and improvement of heart failure patient would likely eventually benefit from cardiac catheterization with intent for revascularization (2) CHF exacerbation Current Visit: Yes Status: Acute Code(s): I50.9 - HEART FAILURE, UNSPECIFIED SNOMED Code(s): 90796611 Comment: -Both systolic and diastolic dysfunction -Continue Lasix -Pt still requires 3L NC and does not have O2 at home -Continue heart healthy diet -Will add low sodium diet to above -ABG not suggestive of obstructive disease despite significant smoking history -CXR consistent w/CHF (3) A-fib Current Visit: Yes Status: Acute Code(s): I48.91 - UNSPECIFIED ATRIAL FIBRILLATION SNOMED Code(s): 45379671 Comment: #A. fib w/RVR -Continue Metoprolol -Pt on Heparin gtt (4) Renal insufficiency Current Visit: Yes Status: Acute Code(s): N28.9 - DISORDER OF KIDNEY AND URETER, UNSPECIFIED SNOMED Code(s): 478380258 Comment: -Unclear renal history of how acute or chronic his renal failure is -[facility]wait[facility] -Agree w/SPEP; will add UPEP -Check urine lytes to calculate for FE-Urea -Ordered renal U/S to R/O post-renal causes of insufficiency (5) Superficial venous thrombosis of arm Current Visit: Yes Status: Acute Code(s): I82.619 - ACUTE EMBOLISM AND THROMBOSIS OF SUPERFIC VN UNSP UP EXTREM SNOMED Code(s): 605048066 Comment: -Located in cephalic vein despite heparin gtt -Likely from thrombophlebitis due to IV -IV removed and for warm compress -Given full anticoagulation data for such cases is equivocal, will check for Doppler U/S to eval for DVT, however, given pt has CHADS-vasc = 3, will likely need DOACs/PO anticoagulation on D/C (6) BPH (benign prostatic hyperplasia) Current Visit: Yes Status: Acute Code(s): N40.0 - BENIGN PROSTATIC HYPERPLASIA WITHOUT LOWER URINRY TRACT SYMP SNOMED Code(s): 387217542 Comment: -Continue Finasteride and Terazosin (7) DVT prophylaxis Current Visit: Yes Status: Acute Code(s): SJB2425 - SNOMED Code(s): 423178975 Comment: -As above -On Heparin gtt Status and Disposition: -As above
--- NOTE | 2018-09-11 12:48 | PN ---
Subjective Date of Service: 09/11/18 Interval History: f/u NV, systolic HF, ICM UOP improved, feeling better Still unable to lay flat No chest discomfort [facility] labs reviewed, pertinent as below Tele Afib 90-100's Medications Active Medications: Aspirin (Aspirin Tab*) 325 mg PO DAILY [facility] Last Admin: 09/11/18 08:05 Dose: 325 mg Atorvastatin Calcium (Lipitor*) 80 mg PO BEDTIME [facility] Last Admin: 09/10/18 20:05 Dose: 80 mg Finasteride (Proscar Tab*) 5 mg PO DAILY [facility] Last Admin: 09/11/18 08:05 Dose: 5 mg Furosemide (Lasix Iv*) 40 mg IV BID [facility] Last Admin: 09/11/18 08:05 Dose: 40 mg Heparin Sodium (Porcine) (Heparin Vial(*)) 0 units IV .BOLUS PRN PRN Reason: HEPARIN DRIP PROTOCOL Last Admin: 09/10/18 14:58 Dose: 2,000 units Heparin Sodium/Dextrose (Heparin Drip 25,000 Units(*)) 25,000 units in 500 mls @ 0 mls/hr IV PER RATE [facility]; Protocol Last Admin: 09/10/18 17:24 Dose: 26 mls/hr Isosorbide Dinitrate (Isordil Tab*) 10 mg PO TID [facility] Last Admin: 09/11/18 08:05 Dose: 10 mg Metoprolol Succinate (Toprol Xl Tab*) 25 mg PO BID [facility] Last Admin: 09/11/18 08:05 Dose: 25 mg Nicotine Polacrilex (Nicotine Lozenge*) 2 mg MT Q2H PRN PRN Reason: CRAVINGS Last Admin: 09/10/18 13:33 Dose: 2 mg Terazosin HCl (Hytrin Cap*) 1 mg PO BEDTIME [facility] Last Admin: 09/10/18 20:05 Dose: 1 mg Terazosin HCl (Hytrin Cap*) 5 mg PO BEDTIME [facility] Last Admin: 09/10/18 20:05 Dose: 5 mg Objective Vital Signs: Temp Pulse Resp BP Pulse Ox 98.1 F 99 15 129/67 96 09/11/18 07:39 09/11/18 07:01 09/11/18 07:14 09/11/18 07:00 09/11/18 07:26 Oxygen Devices in Use Now: Nasal Cannula Appearance: not toxic appearing, conversant Ears/Nose/Mouth/Throat: Clear Oropharnyx Neck: Trachea Midline, - - uncertain jvp Respiratory: Symmetrical Chest Expansion and Respiratory Effort, - - scattered wheeze Cardiovascular: - - irregularly irregular, tachcyardic, 1+ systolic murmur apex , uncertain jvp Abdominal: NL Sounds; No Tenderness; No Distention Extremities: No Clubbing, Cyanosis, - - 2+ pitting edema legs Skin: No Rash or Ulcers Neurological: Alert and Oriented x 3 Laboratory Results: 09/11/18 05:44 09/11/18 05:44 INR (Anticoag Therapy) 1.21 (0.77-1.02) H 09/10/18 06:30 APTT 59.2 seconds (26.0-36.3) H 09/11/18 03:12 Total Bilirubin 0.90 mg/dL (0.2-1.0) 09/11/18 05:44 AST 33 U/L (13-39) 09/11/18 05:44 ALT 27 U/L (7-52) 09/11/18 05:44 Alkaline Phosphatase 66 U/L (34-104) 09/11/18 05:44 B-Natriuretic Peptide 1285 pg/mL (<=100) H 09/09/18 14:27 Total Protein 5.8 g/dL (6.4-8.9) L 09/11/18 05:44 Albumin 3.1 g/dL (3.2-5.2) L 09/11/18 05:44 Globulin 2.7 g/dL (2-4) 09/11/18 05:44 Albumin/Globulin Ratio 1.1 (1-3) 09/11/18 05:44 Triglycerides 72 mg/dL 09/10/18 06:30 Cholesterol 115 mg/dL 09/10/18 06:30 LDL Cholesterol 64 mg/dL 09/10/18 06:30 HDL Cholesterol 36.5 mg/dL 09/10/18 06:30 TSH 1.33 mcIU/mL (0.34-5.60) 09/10/18 06:30 09/09/18 09/09/18 09/10/18 14:27 19:10 06:30 Troponin I 5.33 H* 6.24 H* 8.06 H* 09/11/18 05:44 Troponin I 7.20 H* Diagnostic Imaging: b12, folic acid this admission normal. 08/13/2018 hgb 12.2 mcv 102.5 tsat 33% (normal) ferritin 113 (normal) Labs 07/05/2018 bun/cr 24/1.1 albumin 3.6 hgb 14.2 11/2017 labs 161.1 hgb 15.1, mcv 96.5 cxr 09/09/2018: pulmonary edema, b/l pleural effusions Renal US 09/10/2018. 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 NSTEMI - pain free 3. Atrial fibrillation, chronic was on aspirin 4. MADELEINE - Baseline Cr 1.1 - ? CRS, continue diuresis and recheck 5. Macrocytic anemia - Progressive over past year - Labs as above unrevealing - Continue aspirin daily - Continue heparin gtt - Hold off on second anti-platelet for now - Continue intensive dose statin - Continue IV diuresis (needs much more - another extra 40 mg IV for later today ordered ordered now), check and replace electrolytes - Continue toprol 25 mg po bid, HR should improve with better diuresis. Given another 250 mcg of IV digoxin x 1 now (ordered) - Transition isordil 10 mg po tid to imdur 30 mg po daily (ordered) - Hold off on AceI/ARB for now - Renal failure and progressive anemia concerning for multiple myeloma. Check SPEP (ordered). Also check stool for blood and reticulocyte count (ordered) - Pending above evaluation of his anemia and renal failure and further medical stabilization and improvement of heart failure patient would likely eventually benefit from cardiac catheterization with intent for revascularization Thank you for allowing me to participate in the cardiovascular care of this patient. Please do not hesitate to contact me with questions or concerns.
[2018-09-11] MEDS: Digoxin IV* 0.5 MG/2 ML AMP (0.25 MG/ML) ONE ×2 (13:03→13:24)
[2018-09-11] MEDS: Furosemide IV* 10 MG/ML VIAL (40 MG) ONE ×2 (13:03→13:24)
[2018-09-11] MEDS: Heparin DRIP 25,000 UNITS(*) 25,000 UNITS/500 ML BAG IV SCH (13:21)
[2018-09-11 13:56] LABS: Urine Creatinine Concentration 13.19 mg/dL
[2018-09-11] MEDS: Metoprolol Succinate XL TAB* 50 MG PO SCH (20:21)
[2018-09-11] MEDS: Terazosin CAP* 1 MG PO SCH (20:22)
[2018-09-11] MEDS: Atorvastatin* 80 MG TAB PO SCH (20:22)
[2018-09-11] MEDS: Terazosin CAP* 5 MG PO SCH (20:22)
[2018-09-12 06:10] LABS: ABS Basophils 0.1 10^3/ul (0-0.2); ABS Eosinophils 0 10^3/ul (0-0.6); ABS Lymphocytes 0.6 10^3/ul (1.0-4.8); ABS Monocytes 0.6 10^3/ul (0-0.8); ABS Nucleated RBC 0 10^3/ul; Corrected Retic Count 2.3 % (0.5-1.5); Eosinophil % 0.3 %; Hematocrit 29 % (42-52); Hematocrit for Retic CNT 29 % (42-52); Hemoglobin 9.7 g/dl (14.0-18.0); Immature Retic Fraction 0.51; Lymphocyte % 6.8 %; Mean Corpuscular HGB Conc 34 g/dl (31-36); Mean Corpuscular Hemoglobin 35 pg (27-31); Mean Corpuscular Volume 102 fL (80-94); Mean Platelet Volume 7.1 fL (7.4-10.4); Nucleated Red Blood Cells % 0; Platelet Count 308 10^3/ul (150-450); RBC Retic Count 2.81 10^6/ul (4.6-6.2); Red Blood Count 2.81 10^6/ul (4.00-5.40); Red Cell Distribution Width 14 % (10.5-15); White Blood Count 9.4 10^3/ul (3.5-10.8)
[2018-09-12 06:27] LABS: Albumin/Globulin Ratio 1.1 (1-3); BUN/Creatinine Ratio 40.3 (8-20); Calcium 8.3 mg/dL (8.6-10.3); EGFR Non-African American 54.2 (>60); Globulin 2.7 g/dL (2-4); Magnesium 2.1 mg/dL (1.9-2.7); Phosphorus 3.5 mg/dL (2.5-5.0); Potassium 3.6 mmol/L (3.5-5.0); Total Bilirubin 0.9 mg/dL (0.2-1.0); Total Protein 5.7 g/dL (6.4-8.9)
[2018-09-12] MEDS: Finasteride TAB* 5 MG PO SCH (07:33)
[2018-09-12] MEDS: Aspirin TAB* 325 MG PO SCH (07:33)
[2018-09-12] MEDS: Furosemide IV* 10 MG/ML VIAL (40 MG) IV SCH (07:33)
[2018-09-12] MEDS: Metoprolol Succinate XL TAB* 50 MG PO SCH ×2 (07:33→22:27)
[2018-09-12] MEDS: Isosorbide Mononitrate ER TAB* 30 MG PO SCH (07:33)
[2018-09-12] MEDS: NICOTINE 4 MG MT PRN ×2 (08:01→13:55)
[2018-09-12] MEDS: Furosemide IV* 10 MG/ML 10 ML VIAL (100 MG) IV SCH ×2 (08:23→21:07)
--- NOTE | 2018-09-12 08:41 | PN ---
Subjective Date of Service: 09/12/18 Interval History: f/u MO, systolic HF, ICM Continues diuresis and breathing continues to improve, remains volume overloaded Can't lay flat yet 02 sats 90% on RA sitting upright Creatinine improving with diuresis suggestive of CRS Hemoglobin remains low with elevated BUN/Cr ratio concerning for GI source No chest discomfort Tele Afib 90-100's Medications Active Medications: Aspirin (Aspirin Tab*) 325 mg PO DAILY [facility] Last Admin: 09/12/18 07:33 Dose: 325 mg Atorvastatin Calcium (Lipitor*) 80 mg PO BEDTIME [facility] Last Admin: 09/11/18 20:22 Dose: 80 mg Finasteride (Proscar Tab*) 5 mg PO DAILY [facility] Last Admin: 09/12/18 07:33 Dose: 5 mg Furosemide (Lasix Iv*) 80 mg IV BID [facility] Last Admin: 09/12/18 08:23 Dose: 40 mg Heparin Sodium (Porcine) (Heparin Vial(*)) 0 units IV .BOLUS PRN PRN Reason: HEPARIN DRIP PROTOCOL Last Admin: 09/10/18 14:58 Dose: 2,000 units Heparin Sodium/Dextrose (Heparin Drip 25,000 Units(*)) 25,000 units in 500 mls @ 0 mls/hr IV PER RATE [facility]; Protocol Last Admin: 09/11/18 13:21 Dose: 26 mls/hr Isosorbide Mononitrate (Imdur Er Tab*) 30 mg PO DAILY [facility] Last Admin: 09/12/18 07:33 Dose: 30 mg Losartan Potassium (Cozaar Tab*) 12.5 mg PO DAILY [facility] Metoprolol Succinate (Toprol Xl Tab*) 50 mg PO BID [facility] Last Admin: 09/12/18 07:33 Dose: 50 mg Nicotine Polacrilex (Nicotine Lozenge*) 2 mg MT Q2H PRN PRN Reason: CRAVINGS Last Admin: 09/12/18 08:01 Dose: 2 mg Pneumococcal Polyvalent Vaccine (Pneumococcal Vac 23-Polyvalent*) 0.5 ml IM .ONCE ONE Stop: 09/12/18 09:01 Last Admin: 09/12/18 07:33 Dose: 0.5 ml Potassium Chloride (Klor Con Er Tab*) 40 meq PO ONCE ONE Stop: 09/12/18 08:34 Terazosin HCl (Hytrin Cap*) 1 mg PO BEDTIME [facility] Last Admin: 09/11/18 20:22 Dose: 1 mg Terazosin HCl (Hytrin Cap*) 5 mg PO BEDTIME [facility] Last Admin: 09/11/18 20:22 Dose: 5 mg Objective Vital Signs: Temp Pulse Resp BP Pulse Ox 98.6 F 84 18 116/65 91 09/12/18 07:26 09/12/18 08:00 09/12/18 08:00 09/12/18 08:00 09/12/18 08:00 Oxygen Devices in Use Now: Nasal Cannula Appearance: not toxic appearing, conversant Ears/Nose/Mouth/Throat: Clear Oropharnyx Neck: Trachea Midline, - - uncertain jvp Respiratory: Symmetrical Chest Expansion and Respiratory Effort, - - decreased BS bases, no wheeze this AM Cardiovascular: - - irregularly irregular, tachcyardic, 1+ systolic murmur apex , uncertain jvp Abdominal: NL Sounds; No Tenderness; No Distention Extremities: No Clubbing, Cyanosis, - - 2+ pitting edema of ankles Skin: No Rash or Ulcers Neurological: Alert and Oriented x 3 Laboratory Results: 09/12/18 05:53 09/12/18 05:53 INR (Anticoag Therapy) 1.21 (0.77-1.02) H 09/10/18 06:30 APTT 54.3 seconds (26.0-36.3) H 09/12/18 05:53 Total Bilirubin 0.90 mg/dL (0.2-1.0) 09/12/18 05:53 AST 20 U/L (13-39) 09/12/18 05:53 ALT 21 U/L (7-52) 09/12/18 05:53 Alkaline Phosphatase 63 U/L (34-104) 09/12/18 05:53 B-Natriuretic Peptide 1285 pg/mL (<=100) H 09/09/18 14:27 Total Protein 5.7 g/dL (6.4-8.9) L 09/12/18 05:53 Albumin 3.0 g/dL (3.2-5.2) L 09/12/18 05:53 Globulin 2.7 g/dL (2-4) 09/12/18 05:53 Albumin/Globulin Ratio 1.1 (1-3) 09/12/18 05:53 Triglycerides 72 mg/dL 09/10/18 06:30 Cholesterol 115 mg/dL 09/10/18 06:30 LDL Cholesterol 64 mg/dL 09/10/18 06:30 HDL Cholesterol 36.5 mg/dL 09/10/18 06:30 TSH 1.33 mcIU/mL (0.34-5.60) 09/10/18 06:30 09/09/18 09/09/18 09/10/18 14:27 19:10 06:30 Troponin I 5.33 H* 6.24 H* 8.06 H* 09/11/18 05:44 Troponin I 7.20 H* Diagnostic Imaging: b12, folic acid this admission normal. reticulocyte elevated 08/13/2018 hgb 12.2 mcv 102.5 tsat 33% (normal) ferritin 113 (normal) Labs 07/05/2018 bun/cr 24/1.1 albumin 3.6 hgb 14.2 11/2017 labs BUN/Cr 16/1.1 hgb 15.1, mcv 96.5 cxr 09/09/2018: pulmonary edema, b/l pleural effusions Renal US 09/10/2018. 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 NSTEMI - pain free 3. Atrial fibrillation, chronic was on aspirin 4. Cardiorenal syndrome - Cr approaching baseline of 1.1 with diuresis 5. Macrocytic anemia - Progressive over past year - Labs as above unrevealing except elevated reticulocytes - Elevated BUN/cr ratio ? GI source 6. Tobacco use - Continue aspirin daily - Continue heparin gtt - Hold off on second anti-platelet for now - Continue intensive dose statin - Continue IV diuresis, increase to lasix 80 mg IV BID (ordered) check and replace electrolytes. Give another 40 meq K+ now (ordered) - Continue toprol 50 mg po bid, HR should improve with better diuresis. - Continue isordil 30 mg po daily - Add losartan 12.5 mg po daily (ordered) Remains with macrocytic anemia, progressive over past year. SPEP and stools sample pending. Will repeat iron studies (ordered) GI consult Dr. Johnson placed and discussed - Pending above evaluation of his anemia and further medical stabilization and improvement of heart failure patient would eventually benefit from cardiac catheterization with intent for revascularization Thank you for allowing me to participate in the cardiovascular care of this patient. Please do not hesitate to contact me with questions or concerns.
[2018-09-12] MEDS ORDERED: Potassium Chlor TAB* 20 MEQ TAB.ER PO ONE ×2 (08:45→15:00)
[2018-09-12] MEDS ORDERED: Pneumococcal *Vac Polyvalent 0.5 ML VIAL IM ONE (09:00)
[2018-09-12] MEDS: Losartan TAB* 25 MG PO SCH (09:09)
[2018-09-12] MEDS: Heparin DRIP 25,000 UNITS(*) 25,000 UNITS/500 ML BAG IV SCH (09:11)
[2018-09-12 10:42] LABS: Ferritin 47.2 ng/mL (24-336); Iron 40 ug/dL (50-212); Total Iron Binding Capacity 244 mcg/dL (250-450); Transferrin 174 mg/dL (203-362)
[2018-09-12] MEDS: Pantoprazole IV* 40 MG IV SCH (14:49)
[2018-09-12] MEDS ORDERED: Furosemide IV* 10 MG/ML 10 ML VIAL (100 MG) IV ONE (15:00)
--- NOTE | 2018-09-12 19:15 | PN ---
Subjective Date of Service: 09/12/18 Interval History: Pt seen and examined. Meds and labs reviewed. CC: N/A; pt feels better ROS: Denied HU/dizziness, F/C, N/V, CP, SOB, increased cough, sputum production , abd pain, diarrhea, constipation, dysuria, myalgias, arthralgias, throat pain , and new skin lesions. The rest of the 14 point ROS are unremarkable. PHYSICAL EXAM: GEN APPEARANCE: Awake, not in acute distress HEENT: NC/AT, PERRLA, moist oral mucosa, (-) throat erythema NECK: Soft, supple, (-) cervical LAD, (-)JVD HEART: S1S2 WNL, RRR, No MRG CHEST: CTA, BL, GAE, No W/R/R ABD: Soft, ND/NT, NABS 4x Q EXT: No C/C/E SKIN: Warm to touch PSYCH: No active psychosis, hallucinations, depression, SI/HI Objective Active Medications: Aspirin (Aspirin Tab*) 325 mg PO DAILY [facility] Last Admin: 09/12/18 07:33 Dose: 325 mg Atorvastatin Calcium (Lipitor*) 80 mg PO BEDTIME [facility] Last Admin: 09/11/18 20:22 Dose: 80 mg Finasteride (Proscar Tab*) 5 mg PO DAILY [facility] Last Admin: 09/12/18 07:33 Dose: 5 mg Furosemide (Lasix Iv*) 80 mg IV BID [facility] Last Admin: 09/12/18 08:23 Dose: 40 mg Heparin Sodium (Porcine) (Heparin Vial(*)) 0 units IV .BOLUS PRN PRN Reason: HEPARIN DRIP PROTOCOL Last Admin: 09/10/18 14:58 Dose: 2,000 units Heparin Sodium/Dextrose (Heparin Drip 25,000 Units(*)) 25,000 units in 500 mls @ 0 mls/hr IV PER RATE [facility]; Protocol Last Admin: 09/12/18 09:11 Dose: 26 mls/hr Isosorbide Mononitrate (Imdur Er Tab*) 30 mg PO DAILY [facility] Last Admin: 09/12/18 07:33 Dose: 30 mg Losartan Potassium (Cozaar Tab*) 12.5 mg PO DAILY [facility] Last Admin: 09/12/18 09:09 Dose: 12.5 mg Metoprolol Succinate (Toprol Xl Tab*) 50 mg PO BID [facility] Last Admin: 09/12/18 07:33 Dose: 50 mg Nicotine Polacrilex (Nicotine Lozenge*) 2 mg MT Q2H PRN PRN Reason: CRAVINGS Last Admin: 09/12/18 13:55 Dose: 2 mg Pantoprazole Sodium (Protonix Iv*) 40 mg IV DAILY [facility] Last Admin: 09/12/18 14:49 Dose: 40 mg Terazosin HCl (Hytrin Cap*) 1 mg PO BEDTIME [facility] Last Admin: 09/11/18 20:22 Dose: 1 mg Terazosin HCl (Hytrin Cap*) 5 mg PO BEDTIME [facility] Last Admin: 09/11/18 20:22 Dose: 5 mg Vital Signs - 8 hr 09/12/18 09/12/18 09/12/18 11:21 12:00 12:01 Temperature 98.3 F Pulse Rate 94 93 Respiratory 17 20 16 Rate Blood Pressure 117/67 (mmHg) O2 Sat by Pulse 94 92 Oximetry 09/12/18 09/12/18 09/12/18 12:41 13:00 13:01 Temperature Pulse Rate 80 85 Respiratory 23 19 20 Rate Blood Pressure 111/59 (mmHg) O2 Sat by Pulse 88 92 Oximetry 09/12/18 09/12/18 09/12/18 13:49 13:55 14:00 Temperature Pulse Rate 96 Respiratory 22 23 19 Rate Blood Pressure 104/66 (mmHg) O2 Sat by Pulse 88 Oximetry 09/12/18 09/12/18 09/12/18 14:01 15:00 15:01 Temperature Pulse Rate 98 103 102 Respiratory 19 23 25 Rate Blood Pressure 107/59 (mmHg) O2 Sat by Pulse 91 88 89 Oximetry 09/12/18 09/12/18 09/12/18 15:46 16:00 17:00 Temperature 99.4 F Pulse Rate 85 121 Respiratory 23 23 Rate Blood Pressure 105/64 (mmHg) O2 Sat by Pulse 94 87 Oximetry 09/12/18 09/12/18 09/12/18 17:01 17:02 17:04 Temperature Pulse Rate 105 88 Respiratory 21 19 23 Rate Blood Pressure 87/66 99/52 (mmHg) O2 Sat by Pulse 83 90 Oximetry 09/12/18 09/12/18 18:00 18:01 Temperature Pulse Rate 88 95 Respiratory 22 22 Rate Blood Pressure 107/58 (mmHg) O2 Sat by Pulse 91 90 Oximetry Oxygen Devices in Use Now: Nasal Cannula Result Diagrams: 09/12/18 05:53 09/12/18 05:53 Microbiology and Other Data: Microbiology 09/09/18 14:24 Aerobic Blood Culture - Preliminary Blood Venous No Growth Day 1 09/09/18 14:23 Blood Culture - Preliminary Blood Venous No Growth Day 1 09/09/18 18:20 Nasal Screen MRSA (PCR) - Final Nasal Mrsa Not Detected 09/09/18 14:27 Influenza Types A,B Antigen - Final Nasal Specimen received for Influenza A/B Molecular testing Assess/Plan/Problems-Billing Assessment: - Patient Problems (1) NSTEMI (non-ST elevated myocardial infarction) Current Visit: Yes Status: Acute Code(s): I21.4 - NON-ST ELEVATION (NSTEMI) MYOCARDIAL INFARCTION SNOMED Code(s): 83993639 Comment: -Continue ASA, heparin gtt, statins, and Toprol -Now on Isordil -Hold off on ACEI for now; likely prescribe prior to D/C given EF 25-30%; will await further guidance from Cards -Defer further reccs from Cards - Pending above evaluation and further medical stabilization and planned EGD/GI eval, patient would likely eventually benefit from cardiac catheterization with intent for revascularization (2) Anemia Current Visit: Yes Status: Acute Code(s): D64.9 - ANEMIA, UNSPECIFIED SNOMED Code(s): 220140832 Comment: -MCV elevated but normal B12 and folate levels -Will check MMA -Dr. Shepherd contacted Dr. Johnson whom I spoke w/ and for planned EGD possibly on Thursday if not possible tomorrowD/W Dr. Johnson; will defer (3) CHF exacerbation Current Visit: Yes Status: Acute Code(s): I50.9 - HEART FAILURE, UNSPECIFIED SNOMED Code(s): 96347789 Comment: -Both systolic and diastolic dysfunction -Improved -Continue Lasix PO -Now on RA -Continue heart healthy diet -Will add low sodium diet to above -ABG not suggestive of obstructive disease despite significant smoking history -CXR consistent w/CHF (4) A-fib Current Visit: Yes Status: Acute Code(s): I48.91 - UNSPECIFIED ATRIAL FIBRILLATION SNOMED Code(s): 51350194 Comment: -Continue Metoprolol -Pt on Heparin gtt -Defer w/plans for outpt anticoagulation w/Cards (5) Renal insufficiency Current Visit: Yes Status: Acute Code(s): N28.9 - DISORDER OF KIDNEY AND URETER, UNSPECIFIED SNOMED Code(s): 558178311 Comment: -Unclear renal history of how acute or chronic his renal failure is -Awaiting [facility] reccs -Awaiting w/SPEP; will add UPEP -FE-Urea = 43.02, suggestive of intrinsic renal problem, possibly from chronic medical issues? cardiorenal? Will touch base w/Dr. Shepherd in AM -No Hydronephrosis seen on 09/10 Abd U/S (6) Superficial venous thrombosis of arm Current Visit: Yes Status: Acute Code(s): I82.619 - ACUTE EMBOLISM AND THROMBOSIS OF SUPERFIC VN UNSP UP EXTREM SNOMED Code(s): 489007684 Comment: -Located in cephalic vein despite heparin gtt -Likely from thrombophlebitis due to IV -IV removed and for warm compress -Given full anticoagulation data for such cases is equivocal, will check for Doppler U/S to eval for DVT, however, given pt has CHADS-vasc = 3, will likely need DOACs/PO anticoagulation on D/C (7) BPH (benign prostatic hyperplasia) Current Visit: Yes Status: Acute Code(s): N40.0 - BENIGN PROSTATIC HYPERPLASIA WITHOUT LOWER URINRY TRACT SYMP SNOMED Code(s): 452987265 Comment: -Continue Finasteride and Terazosin (8) DVT prophylaxis Current Visit: Yes Status: Acute Code(s): SDJ3837 - SNOMED Code(s): 824036804 Comment: -As above -On Heparin gtt Status and Disposition: -As above
[2018-09-12] MEDS: Atorvastatin* 80 MG TAB PO SCH (21:07)
[2018-09-12] MEDS ORDERED: Metoprolol Succinate XL TAB* 25 MG PO ONE (22:16)
[2018-09-12] MEDS: Terazosin CAP* 5 MG PO SCH (22:27)
[2018-09-12] MEDS: Terazosin CAP* 1 MG PO SCH (22:27)
--- NOTE | 2018-09-13 04:21 | CONS ---
GASTROENTEROLOGY CONSULT Date 09/12/18 CONSULTING PHYSICIANS: Atilio Shepherd; Di Govea, TONIE , [place], [facility]. REASON FOR CONSULT: Falling hemoglobin and high BUN / Cr in a man admitted with congestive heart failure and being diuresed with no overt bleeding observed. HISTORY: This 78-year-old man, chronic smoker up until admission, with a history of atrial fibrillation and over the last year observed to have a mild macrocytic anemia that has evolved, is in the ICU being diuresed. He has been in atrial fibrillation. His troponins are up and cardiac catheterization is anticipated and possible stenting though his anemia complicates decision making. He is aware that [facility] labs have shown an anemia, though he denies any history of indigestion, vomiting, black stools or blood in the stool. He passes stool about every other day. Ten years ago, he had a colonoscopy through the [facility] system and thinks that nothing was seen. He has never had any peptic complaints nor prior upper endoscopy. Later then, he admits that he takes Rolaids once or twice a week. He has been using Aleve for hand arthritis, but also comments "you hear that it is good for lots of things" and has been using the Aleve regularly, but sporadically for 3 to 4 years. He also takes a baby aspirin, acknowledging [facility] recommended a full aspirin and he decided that was too big. There is no family history of gastrointestinal problems that he is aware of. He is the fourth of 12 original siblings with 4 left and he says he would know of one of whom had cancer. [facility] labs show November 2017, hemoglobin of 15.1 and 07/05/18, 14.2 and 08/13/18, 12.2 with the MCV through that time evolving from 96 to 98 to 102. Complete iron panel 08/13/18 showed ferritin 113, iron 72, iron saturation 33, TIBC 220 ( low as range 250 to 450), and B12 368. Platelets have been normal, 300 on all three 2018 blood draws. LFTs have been normal and albumin 3.6. Urinary qualitative protein negative. He does not see physicians very often. His stepdaughter tells me his diet is poor with lots of sweets and junk food, but she is not aware of him having any gut complaints. PAST MEDICAL HISTORY: 1. Chronic smoking. 2. Ivnr-dc-bozsxhpt obesity. 3. Atrial fibrillation - no history of thrombotic events. 4. Coronary disease - recent [place] suspected, troponin up. 5. Bilateral knee replacements, 2006, Dr. Benson. 6. History of jaw fracture. 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 [facility] He had [facility] in 2016 and [facility] history and physical from that time does not reveal any gastrointestinal complaints or mention of anemia. REVIEW OF SYSTEMS: No history of vomiting, hematemesis, hemoptysis, jaundice, hepatitis, recent febrile illness, diarrhea, rectal bleeding, abdominal surgery , falls or fractures. This illness came on with 10 to 14 days since having a cold or flu and being short of breath and he went to an urgent care center and was transferred to the ER via ambulance. PHYSICAL EXAM: He is a pasty complected older man, sitting at the bedside, in no distress. Monitor shows atrial fibrillation at around 90 with blood pressure 120/81, O2 saturation 91%. HEENT exam shows no scleral icterus. Mucous membranes are a little dry. He has no adenopathy. Lungs show diminished breath sounds, equal bilaterally. Heart sounds are irregular without a murmur. The abdomen is obese, symmetric. There are no scars. 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 There is no tenderness. Perianal inspection is normal and rectal tolerated poorly, but appeared to have been done atraumatically on solid stool filling the rectum. Specimen submitted. Extremities show 2+ edema to mid calf. LABORATORY DATA: Lab review - during his 4 days here, hemoglobin has gone from 11.4 to 10.0 to 9.7, stable in the last 24 hours. His BUN/creatinine ratio markedly elevated, today BUN 52, creatinine 1.29. Updated iron panel, 16% saturated, ferritin 47, iron 40, TIBC 244 consistent with [facility] results. Albumin 3.1. IMPRESSION: This 78-year-old man presenting with congestive failure has a macrocytic anemia and signs of chronic disease, has blood work with a low albumin, TIBC and macrocytic anemia. Underlying hematologic process is suspected. There could very well be a combined situation as taking regular Aleve and baby aspirin put him at high risk for significant gastritis or even ulcers. He has not had an overt upper GI bleed, though it seems reasonable to do upper endoscopy to assess for that and planning the rest of his cardiac care. It is observed that his troponin is not showing any significant trend. Pending the results of upper endoscopy, empiric b.i.d. IV PPI therapy would be reasonable. Colonoscopy would be much more burden to him and risky and at this point, we will hold off pending further information. [id number]/CPS #: [id number] LAZARA
[2018-09-13] MEDS: Heparin DRIP 25,000 UNITS(*) 25,000 UNITS/500 ML BAG IV SCH (04:59)
[2018-09-13 05:26] LABS: Hematocrit 28 % (42-52); Hemoglobin 9.4 g/dl (14.0-18.0); Mean Corpuscular HGB Conc 33 g/dl (31-36); Mean Corpuscular Hemoglobin 34 pg (27-31); Mean Corpuscular Volume 102 fL (80-94); Mean Platelet Volume 7.3 fL (7.4-10.4); Platelet Count 274 10^3/ul (150-450); Red Blood Count 2.77 10^6/ul (4.00-5.40); Red Cell Distribution Width 14 % (10.5-15); White Blood Count 9.2 10^3/ul (3.5-10.8)
[2018-09-13 05:47] LABS: BUN/Creatinine Ratio 30.3 (8-20); Calcium 8.2 mg/dL (8.6-10.3); EGFR Non-African American 44.8 (>60); Potassium 3.6 mmol/L (3.5-5.0)
[2018-09-13] MEDS: Furosemide IV* 10 MG/ML 10 ML VIAL (100 MG) IV SCH ×2 (09:35→21:08)
[2018-09-13] MEDS: Losartan TAB* 25 MG PO SCH (09:36)
[2018-09-13] MEDS: Finasteride TAB* 5 MG PO SCH (09:37)
[2018-09-13] MEDS: Isosorbide Mononitrate ER TAB* 30 MG PO SCH (09:37)
[2018-09-13] MEDS: Aspirin TAB* 325 MG PO SCH (09:37)
[2018-09-13] MEDS: Pantoprazole IV* 40 MG IV SCH ×2 (09:37→21:13)
[2018-09-13] MEDS: Metoprolol Succinate XL TAB* 50 MG PO SCH ×2 (09:37→21:06)
[2018-09-13] MEDS ORDERED: fentaNYL* 50 MCG/ML 2 ML VIAL (100 MCG VIAL) ONE (13:16)
[2018-09-13] MEDS ORDERED: Midazolam* 1 MG/ML 10 ML VIAL (10 MG) ONE (13:16)
--- NOTE | 2018-09-13 16:42 | PRO ---
CC: Di Govea NP * DATE OF PROCEDURE: 09/13/2018. PROCEDURE PERFORMED: EGD. INDICATION: Anemia. MEDICATIONS GIVEN: 25 mcg IV Fentanyl and 4 mg IV Versed. PROCEDURE: After the EGD procedure, including the risks, benefits, and alternatives, not limited to perforation, surgery and/or were explained to the patient, written consent was then obtained. IV medication was given and a bite-block was placed between the teeth. An Olympus gastroscope was then inserted into the patient's mouth, advanced down the esophagus, into the stomach and into the distal duodenum. In the esophagus at the GE junction, the Z-line was intact. No erosive esophagitis, stricture, or ring was seen. The scope was advanced through a widely patent GE junction and into the body of the stomach. Retroflex view was unremarkable. Forward view revealed multiple erosions and ulcers. Biopsy was obtained for H. pylori. No active bleeding was seen. The scope was advanced through a widely patent pylorus, into the duodenal bulb, and into the distal duodenum, both of which did contain a few small ulcers and erosions, again nonbleeding. The scope was withdrawn from the patient. He tolerated the procedure well and was returned to the care of the ICU staff in stable condition. IMPRESSION: 1. Complete upper endoscopy into the distal duodenum with biopsies. 2. Both gastric and duodenal ulcers and erosions, status post biopsy for H. pylori. Most likely the ulcers are related to his nonsteroidal use. He does need the aspirin for cardio prevention. He should avoid all other nonsteroidals. He is on a PPI. I would recommend we switch it to oral. I will follow-up with biopsies. I did discuss the case with Dr. Howard. [id number]/[facility] #: [id number] LAZARA
--- NOTE | 2018-09-13 18:15 | PN ---
Subjective Date of Service: 09/13/18 Interval History: Pt seen and examined. Meds and labs reviewed. S/P EGD this afternoon. CC: N/A ROS: Denied HU/dizziness, F/C, N/V, CP, SOB, increased cough, sputum production , abd pain, diarrhea, constipation, dysuria, myalgias, arthralgias, throat pain , and new skin lesions. The rest of the 14 point ROS are unremarkable. PHYSICAL EXAM: GEN APPEARANCE: Awake, not in acute distress HEENT: NC/AT, PERRLA, moist oral mucosa, (-) throat erythema NECK: Soft, supple, (-) cervical LAD, (-)JVD HEART: S1S2 WNL, RRR, No MRG CHEST: CTA, BL, GAE, No W/R/R ABD: Soft, ND/NT, NABS 4x Q EXT: No C/C/E SKIN: Warm to touch PSYCH: No active psychosis, hallucinations, depression, SI/HI Objective Active Medications: Aspirin (Aspirin Tab*) 325 mg PO DAILY [facility] Last Admin: 09/13/18 09:37 Dose: 325 mg Atorvastatin Calcium (Lipitor*) 80 mg PO BEDTIME [facility] Last Admin: 09/12/18 21:07 Dose: 80 mg Finasteride (Proscar Tab*) 5 mg PO DAILY [facility] Last Admin: 09/13/18 09:37 Dose: 5 mg Furosemide (Lasix Iv*) 80 mg IV BID [facility] Last Admin: 09/13/18 09:35 Dose: 80 mg Heparin Sodium (Porcine) (Heparin Vial(*)) 0 units IV .BOLUS PRN PRN Reason: HEPARIN DRIP PROTOCOL Last Admin: 09/10/18 14:58 Dose: 2,000 units Heparin Sodium/Dextrose (Heparin Drip 25,000 Units(*)) 25,000 units in 500 mls @ 0 mls/hr IV PER RATE [facility]; Protocol Stop: 09/14/18 03:00 Last Admin: 09/13/18 04:59 Dose: 26 mls/hr Losartan Potassium (Cozaar Tab*) 12.5 mg PO DAILY [facility] Last Admin: 09/13/18 09:36 Dose: 12.5 mg Metoprolol Succinate (Toprol Xl Tab*) 50 mg PO BID [facility] Last Admin: 09/13/18 09:37 Dose: 50 mg Nicotine Polacrilex (Nicotine Lozenge*) 2 mg MT Q2H PRN PRN Reason: CRAVINGS Last Admin: 09/12/18 13:55 Dose: 2 mg Pantoprazole Sodium (Protonix Iv*) 40 mg IV BID [facility] Terazosin HCl (Hytrin Cap*) 1 mg PO BEDTIME [facility] Last Admin: 09/12/18 22:27 Dose: 1 mg Terazosin HCl (Hytrin Cap*) 5 mg PO BEDTIME [facility] Last Admin: 09/12/18 22:27 Dose: 5 mg Vital Signs - 8 hr 09/13/18 09/13/18 09/13/18 11:00 11:01 12:00 Temperature 97.3 F Pulse Rate 82 86 86 Respiratory 20 10 20 Rate Blood Pressure 96/76 102/59 (mmHg) O2 Sat by Pulse 93 95 95 Oximetry 09/13/18 09/13/18 09/13/18 12:01 13:00 13:01 Temperature Pulse Rate 85 88 92 Respiratory 15 14 18 Rate Blood Pressure 95/60 (mmHg) O2 Sat by Pulse 94 94 94 Oximetry 09/13/18 09/13/18 09/13/18 13:42 13:45 13:50 Temperature Pulse Rate 91 96 92 Respiratory Rate Blood Pressure 89/38 85/38 85/43 (mmHg) O2 Sat by Pulse 97 95 98 Oximetry 09/13/18 09/13/18 09/13/18 13:55 13:56 14:00 Temperature Pulse Rate 99 87 84 Respiratory 21 18 17 Rate Blood Pressure 79/51 84/42 81/46 (mmHg) O2 Sat by Pulse 94 92 92 Oximetry 09/13/18 09/13/18 09/13/18 14:01 14:05 14:10 Temperature Pulse Rate 89 90 96 Respiratory 20 15 19 Rate Blood Pressure 97/74 81/44 (mmHg) O2 Sat by Pulse 92 95 91 Oximetry 09/13/18 09/13/18 09/13/18 14:15 14:20 14:25 Temperature Pulse Rate 88 82 90 Respiratory 21 19 19 Rate Blood Pressure 86/49 101/63 102/57 (mmHg) O2 Sat by Pulse 93 93 94 Oximetry 09/13/18 09/13/18 09/13/18 14:30 14:35 14:41 Temperature Pulse Rate 84 85 82 Respiratory 19 18 22 Rate Blood Pressure 90/56 100/55 99/59 (mmHg) O2 Sat by Pulse 94 95 95 Oximetry 09/13/18 09/13/18 09/13/18 14:46 14:50 14:56 Temperature Pulse Rate 91 85 101 Respiratory 17 18 20 Rate Blood Pressure 97/55 94/58 101/59 (mmHg) O2 Sat by Pulse 94 95 95 Oximetry 09/13/18 09/13/18 09/13/18 15:00 15:01 15:06 Temperature Pulse Rate 99 95 95 Respiratory 21 17 17 Rate Blood Pressure 97/67 113/77 (mmHg) O2 Sat by Pulse 96 95 95 Oximetry 09/13/18 09/13/18 09/13/18 15:11 15:15 15:20 Temperature Pulse Rate 91 90 92 Respiratory 21 23 19 Rate Blood Pressure 109/59 102/56 101/66 (mmHg) O2 Sat by Pulse 96 93 95 Oximetry 09/13/18 09/13/18 09/13/18 15:25 15:32 15:35 Temperature Pulse Rate 97 100 Respiratory 18 24 23 Rate Blood Pressure 101/63 108/43 113/73 (mmHg) O2 Sat by Pulse 95 95 Oximetry 09/13/18 09/13/18 09/13/18 15:40 15:45 15:50 Temperature Pulse Rate 86 88 91 Respiratory 16 27 15 Rate Blood Pressure 95/53 90/51 99/52 (mmHg) O2 Sat by Pulse 93 97 94 Oximetry 09/13/18 09/13/18 09/13/18 16:00 16:04 17:00 Temperature 97 F Pulse Rate 85 89 82 Respiratory 20 16 10 Rate Blood Pressure 95/50 109/59 (mmHg) O2 Sat by Pulse 91 95 92 Oximetry 09/13/18 17:01 Temperature Pulse Rate 81 Respiratory 20 Rate Blood Pressure (mmHg) O2 Sat by Pulse 94 Oximetry Oxygen Devices in Use Now: Nasal Cannula Result Diagrams: 09/13/18 05:10 09/13/18 05:10 Microbiology and Other Data: Microbiology 09/09/18 14:24 Aerobic Blood Culture - Preliminary Blood Venous No Growth Day 1 09/09/18 14:23 Blood Culture - Preliminary Blood Venous No Growth Day 1 09/09/18 18:20 Nasal Screen MRSA (PCR) - Final Nasal Mrsa Not Detected 09/09/18 14:27 Influenza Types A,B Antigen - Final Nasal Specimen received for Influenza A/B Molecular testing Assess/Plan/Problems-Billing Assessment: - Patient Problems (1) NSTEMI (non-ST elevated myocardial infarction) Current Visit: Yes Status: Acute Code(s): I21.4 - NON-ST ELEVATION (NSTEMI) MYOCARDIAL INFARCTION SNOMED Code(s): 77538343 Comment: -Continue ASA, heparin gtt, statins, and Toprol -Now on Isordil -Hold off on ACEI for now; likely prescribe prior to D/C given EF 25-30%; will await further guidance from Cards - S/P EGD by Dr. Schwab today who mentioned that pt has multiple non-bleeding ulcer likely from taking and down-playing Aleve use -Will Increase IV PPI to BID -Defer further reccs from [facility] post EGD (2) Anemia Current Visit: Yes Status: Acute Code(s): D64.9 - ANEMIA, UNSPECIFIED SNOMED Code(s): 212794757 Comment: -MCV elevated but normal B12 and folate levels -Awaiting MMA -Iron studies suggestive of concomitant AOCD w/MAURIZIO (3) CHF exacerbation Current Visit: Yes Status: Acute Code(s): I50.9 - HEART FAILURE, UNSPECIFIED SNOMED Code(s): 50479953 Comment: -Both systolic and diastolic dysfunction -Improved -Continue Lasix PO -Now on RA -Continue heart healthy diet -Will add low sodium diet to above -ABG not suggestive of obstructive disease despite significant smoking history -CXR consistent w/CHF (4) A-fib Current Visit: Yes Status: Acute Code(s): I48.91 - UNSPECIFIED ATRIAL FIBRILLATION SNOMED Code(s): 19276608 Comment: -Continue Metoprolol -Pt on Heparin gtt -Defer w/plans for outpt anticoagulation w/Cards (5) Renal insufficiency Current Visit: Yes Status: Acute Code(s): N28.9 - DISORDER OF KIDNEY AND URETER, UNSPECIFIED SNOMED Code(s): 441017605 Comment: -Unclear renal history of how acute or chronic his renal failure is -[facility] -Awaiting w/SPEP; will add UPEP -FE-Urea = 43.02, suggestive of intrinsic renal problem, possibly from chronic medical issues? cardiorenal? Will touch base w/Dr. Shepherd in AM -No Hydronephrosis seen on 09/10 Abd U/S (6) Superficial venous thrombosis of arm Current Visit: Yes Status: Acute Code(s): I82.619 - ACUTE EMBOLISM AND THROMBOSIS OF SUPERFIC VN UNSP UP EXTREM SNOMED Code(s): 161246139 Comment: -Located in cephalic vein despite heparin gtt -Likely from thrombophlebitis due to IV -IV removed and for warm compress -Given full anticoagulation data for such cases is equivocal, will check for Doppler U/S to eval for DVT, however, given pt has CHADS-vasc = 3, will likely need DOACs/PO anticoagulation on D/C (7) BPH (benign prostatic hyperplasia) Current Visit: Yes Status: Acute Code(s): N40.0 - BENIGN PROSTATIC HYPERPLASIA WITHOUT LOWER URINRY TRACT SYMP SNOMED Code(s): 414010790 Comment: -Continue Finasteride and Terazosin (8) DVT prophylaxis Current Visit: Yes Status: Acute Code(s): QXU8562 - SNOMED Code(s): 138617507 Comment: -As above -On Heparin gtt Status and Disposition: -As above
[2018-09-13] MEDS: Heparin VIAL(*) 5000 UNITS/ML VIAL (FIVE THOUSAND) IV PRN (20:31)
[2018-09-13] MEDS: Atorvastatin* 80 MG TAB PO SCH (21:06)
[2018-09-13] MEDS: Terazosin CAP* 5 MG PO SCH (21:06)
[2018-09-13] MEDS: Terazosin CAP* 1 MG PO SCH (21:06)
[2018-09-14] MEDS: Metoprolol Succinate XL TAB* 50 MG PO SCH (08:51)
[2018-09-14] MEDS: Aspirin TAB* 325 MG PO SCH (08:51)
[2018-09-14] MEDS: Losartan TAB* 25 MG PO SCH (08:51)
[2018-09-14] MEDS: Finasteride TAB* 5 MG PO SCH (08:51)
[2018-09-14] MEDS: Pantoprazole IV* 40 MG IV SCH (08:51)
[2018-09-14] MEDS: NICOTINE 4 MG MT PRN (08:52)
[2018-09-14] MEDS ORDERED: Diazepam TAB(*) 5 MG PO PRN (09:12)
[2018-09-14] MEDS ORDERED: diPHENhydraMINE PO* 25 MG PO PRN (09:12)
[2018-09-14] MEDS ORDERED: NS 0.9% 1000 ML* 1,000 ML IV SCH (09:15)
[2018-09-14] MEDS ORDERED: Lidocaine 1% INJ* 10 MG/ML 30 ML SDV ONE (09:54)
[2018-09-14] MEDS ORDERED: fentaNYL* 50 MCG/ML 2 ML VIAL (100 MCG VIAL) ONE (09:54)
[2018-09-14] MEDS ORDERED: VERAPAMIL 2.5 MG/ML 2 ML VIAL ** 5 mg/2 ml ONE (09:54)
[2018-09-14] MEDS ORDERED: Heparin(*) 1000 UNIT/ML 10 ML VIAL CATH LAB IV ONE (09:54)
[2018-09-14] MEDS ORDERED: Midazolam* 1 MG/ML 5 ML VIAL (5 MG) ONE (09:54)
[2018-09-14] MEDS ORDERED: Iodixanol 320 (CONTRAST) 100 ML SDV ONE (09:55)
[2018-09-14] MEDS ORDERED: Heparin 2 UNITS/ML IVPREMIX* 2,000 ML IV ONE (09:55)
[2018-09-14] MEDS ORDERED: nitroGLYCERIN DRIP* 25,000 MCG/250 ML BTL ONE (09:55)
[2018-09-14] MEDS ORDERED: Furosemide IV* 10 MG/ML 10 ML VIAL (100 MG) IV SCH (16:00)
[2018-09-14 16:49] LABS: ABS Basophils 0 10^3/ul (0-0.2); ABS Eosinophils 0.2 10^3/ul (0-0.6); ABS Lymphocytes 0.9 10^3/ul (1.0-4.8); ABS Monocytes 0.7 10^3/ul (0-0.8); ABS Neutrophils 6.5 10^3/ul (1.5-7.7); ABS Nucleated RBC 0 10^3/ul; Eosinophil % 2.1 %; Hematocrit 30 % (42-52); Hemoglobin 9.9 g/dl (14.0-18.0); Lymphocyte % 10.7 %; Mean Corpuscular HGB Conc 34 g/dl (31-36); Mean Corpuscular Hemoglobin 34 pg (27-31); Mean Corpuscular Volume 102 fL (80-94); Mean Platelet Volume 7.3 fL (7.4-10.4); Nucleated Red Blood Cells % 0; Platelet Count 309 10^3/ul (150-450); Red Cell Distribution Width 14 % (10.5-15); White Blood Count 8.3 10^3/ul (3.5-10.8)
[2018-09-14 16:57] LABS: EGFR Non-African American 49.3 (>60)
[2018-09-14] MEDS ORDERED: Heparin DRIP 25,000 UNITS(*) 25,000 UNITS/500 ML BAG IV SCH (17:00)
--- NOTE | 2018-09-14 17:16 | PN ---
Subjective Date of Service: 09/14/18 Interval History: Patient seen this morning post cardiac cath by Dr. Álvaro Howard. Patient himself denies any chest pain or discomfort. He remains in afib rate controlled. Heparin drip infusing as per protocol. Cardiac cath revealed 3 vessel disease. Case discussed with Dr. Howard and he is arranging for CTS evaluation for possible CABG. Patient prefer to be evaluated at [facility] for evaluation by Dr. Sheikh Family History: Unchanged from Admission Social History: Unchanged from Admission Objective Active Medications: Aspirin (Aspirin Tab*) 325 mg PO DAILY [facility] Last Admin: 09/14/18 08:51 Dose: 325 mg Atorvastatin Calcium (Lipitor*) 80 mg PO BEDTIME [facility] Last Admin: 09/13/18 21:06 Dose: 80 mg Finasteride (Proscar Tab*) 5 mg PO DAILY [facility] Last Admin: 09/14/18 08:51 Dose: 5 mg Furosemide (Lasix Iv*) 80 mg IV Q12H [facility] Last Admin: 09/14/18 16:27 Dose: 80 mg Heparin Sodium (Porcine) (Heparin Vial(*)) 0 units IV .BOLUS PRN PRN Reason: HEPARIN DRIP PROTOCOL Last Admin: 09/13/18 20:31 Dose: 2,000 units Heparin Sodium/Dextrose (Heparin Drip 25,000 Units(*)) 25,000 units in 500 mls @ 0 mls/hr IV PER RATE [facility]; Protocol Losartan Potassium (Cozaar Tab*) 12.5 mg PO DAILY [facility] Last Admin: 09/14/18 08:51 Dose: 12.5 mg Metoprolol Succinate (Toprol Xl Tab*) 50 mg PO BID [facility] Last Admin: 09/14/18 08:51 Dose: 50 mg Nicotine Polacrilex (Nicotine Lozenge*) 2 mg MT Q2H PRN PRN Reason: CRAVINGS Last Admin: 09/14/18 08:52 Dose: 2 mg Pantoprazole Sodium (Protonix Iv*) 40 mg IV BID [facility] Last Admin: 09/14/18 08:51 Dose: 40 mg Terazosin HCl (Hytrin Cap*) 1 mg PO BEDTIME [facility] Last Admin: 09/13/18 21:06 Dose: 1 mg Terazosin HCl (Hytrin Cap*) 5 mg PO BEDTIME [facility] Last Admin: 09/13/18 21:06 Dose: 5 mg Vital Signs - 8 hr 09/14/18 09/14/18 09/14/18 09:37 11:00 11:05 Temperature Pulse Rate 82 Respiratory 22 14 Rate Blood Pressure (mmHg) O2 Sat by Pulse 97 Oximetry 09/14/18 09/14/18 09/14/18 11:08 11:15 11:30 Temperature Pulse Rate 74 75 72 Respiratory 14 17 16 Rate Blood Pressure 109/67 109/64 101/59 (mmHg) O2 Sat by Pulse 97 97 97 Oximetry 09/14/18 09/14/18 09/14/18 11:45 12:00 12:01 Temperature Pulse Rate 73 66 67 Respiratory 19 22 18 Rate Blood Pressure 101/68 106/61 (mmHg) O2 Sat by Pulse 96 96 96 Oximetry 09/14/18 09/14/18 09/14/18 12:14 12:15 12:30 Temperature 98 F Pulse Rate 72 75 Respiratory 15 20 Rate Blood Pressure 106/63 109/72 (mmHg) O2 Sat by Pulse 97 95 Oximetry 09/14/18 09/14/18 09/14/18 12:46 13:00 13:01 Temperature Pulse Rate 66 72 78 Respiratory 17 25 20 Rate Blood Pressure 106/67 139/74 (mmHg) O2 Sat by Pulse 96 96 99 Oximetry 09/14/18 09/14/18 09/14/18 13:15 13:30 13:45 Temperature Pulse Rate 88 83 84 Respiratory 18 25 19 Rate Blood Pressure 130/87 121/84 112/81 (mmHg) O2 Sat by Pulse 95 93 95 Oximetry 09/14/18 09/14/18 09/14/18 14:00 14:01 14:15 Temperature Pulse Rate 82 80 72 Respiratory 19 16 10 Rate Blood Pressure 92/64 102/71 (mmHg) O2 Sat by Pulse 95 94 97 Oximetry 09/14/18 09/14/18 09/14/18 14:31 14:45 15:00 Temperature Pulse Rate 81 83 80 Respiratory 26 21 18 Rate Blood Pressure 116/46 111/73 111/70 (mmHg) O2 Sat by Pulse 96 96 96 Oximetry 09/14/18 09/14/18 09/14/18 15:01 15:15 15:30 Temperature Pulse Rate 85 81 86 Respiratory 21 24 21 Rate Blood Pressure 117/64 123/65 (mmHg) O2 Sat by Pulse 95 97 96 Oximetry 01/09/14/18 09/14/18 15:39 15:45 16:00 Temperature 98.4 F Pulse Rate 75 78 Respiratory 21 16 Rate Blood Pressure 102/72 106/64 (mmHg) O2 Sat by Pulse 95 94 Oximetry 09/14/18 09/14/18 09/14/18 16:01 16:16 16:30 Temperature Pulse Rate 80 74 Respiratory 19 23 20 Rate Blood Pressure 118/68 111/71 (mmHg) O2 Sat by Pulse 94 96 Oximetry 09/14/18 16:45 Temperature Pulse Rate Respiratory 19 Rate Blood Pressure 116/70 (mmHg) O2 Sat by Pulse Oximetry Oxygen Devices in Use Now: Nasal Cannula Appearance: awake, alert. no distress Eyes: No Scleral Icterus, - Ears/Nose/Mouth/Throat: NL Teeth, Lips, Gums, Clear Oropharnyx, Mucous Membranes Moist Neck: NL Appearance and Movements; NL JVP, Trachea Midline Respiratory: Symmetrical Chest Expansion and Respiratory Effort, Clear to Auscultation Cardiovascular: NL Sounds; No Murmurs; No JVD, - - irregularly irregular Abdominal: NL Sounds; No Tenderness; No Distention Extremities: No Edema, - - good cap refill right upper extremety. Neurological: Alert and Oriented x 3, NL Muscle Strength and Tone Result Diagrams: 09/14/18 15:54 09/14/18 15:54 Microbiology and Other Data: Microbiology 09/09/18 14:24 Aerobic Blood Culture - Preliminary Blood Venous No Growth Day 1 09/09/18 14:23 Blood Culture - Preliminary Blood Venous No Growth Day 1 09/09/18 18:20 Nasal Screen MRSA (PCR) - Final Nasal Mrsa Not Detected 09/09/18 14:27 Influenza Types A,B Antigen - Final Nasal Specimen received for Influenza A/B Molecular testing Assess/Plan/Problems-Billing Assessment: 78 year old male admitted for chest pain and shortness of breath found to have positive troponin peaked at 8.06 underwent cardiac cath by Dr. Howard on 09/14/17 and found to have 3 vessels disease and currently awaiting transfer to [facility] for CABG evaluations - Patient Problems (1) NSTEMI (non-ST elevated myocardial infarction) Current Visit: Yes Status: Acute Code(s): I21.4 - NON-ST ELEVATION (NSTEMI) MYOCARDIAL INFARCTION SNOMED Code(s): 17090476 Comment: - Trop peaked at 8 - Continue ASA 325 mg, heparin gtt, statins, and Toprol - S/p cardiac cath 09/14/17 showed 3 vessels disease - For transfer to [facility] for CABG evaluations (2) A-fib Current Visit: Yes Status: Acute Code(s): I48.91 - UNSPECIFIED ATRIAL FIBRILLATION SNOMED Code(s): 38053317 Comment: - rate controlled Continue Metoprolol - Pt on Heparin gtt - Defer w/plans for outpt anticoagulation w/Cards once discharged especially given his anemia - Currently on waiting list to be accepted at [facility] for Evaluation for CABG by Dr. Sheikh CTS (3) Anemia Current Visit: Yes Status: Acute Code(s): D64.9 - ANEMIA, UNSPECIFIED SNOMED Code(s): 791466740 Comment: - s/p EGD 09/13/18. EGD showed both gastric and duodenal ulcer erosions. Biopsies pending -MCV elevated but normal B12 and folate levels -Awaiting MMA -Iron studies suggestive AOCD - Continue Protonix 40 mg IV bid and will need to remain on po bid for at least a month and switch to daily after a month (4) BPH (benign prostatic hyperplasia) Current Visit: Yes Status: Acute Code(s): N40.0 - BENIGN PROSTATIC HYPERPLASIA WITHOUT LOWER URINRY TRACT SYMP SNOMED Code(s): 140437890 Comment: -Continue Finasteride and Terazosin (5) CHF exacerbation Current Visit: Yes Status: Acute Code(s): I50.9 - HEART FAILURE, UNSPECIFIED SNOMED Code(s): 16514600 Comment: - Echo 09/09/18 EF 25%, Moderate Mitral regurgitations. - Both systolic and diastolic dysfunction - On lasix 80 mg IV Q12 hrs, On losartan 12.5 mg daily, lopressor 50 mg bid (6) Renal insufficiency Current Visit: Yes Status: Acute Code(s): N28.9 - DISORDER OF KIDNEY AND URETER, UNSPECIFIED SNOMED Code(s): 876247147 Comment: -Unclear renal history of how acute or chronic his renal failure is -[facility] -Awaiting w/SPEP; will add UPEP -FE-Urea = 43.02, suggestive of intrinsic renal problem, possibly from chronic medical issues? cardiorenal? -No Hydronephrosis seen on 09/10 Abd U/S (7) Superficial venous thrombosis of arm Current Visit: Yes Status: Acute Code(s): I82.619 - ACUTE EMBOLISM AND THROMBOSIS OF SUPERFIC VN UNSP UP EXTREM SNOMED Code(s): 616124817 Comment: -Located in cephalic vein despite heparin gtt -Likely from thrombophlebitis due to IV -IV removed and for warm compress -Given full anticoagulation data for such cases is equivocal, will check for Doppler U/S to eval for DVT, however, given pt has CHADS-vasc = 3, will likely need DOACs/PO anticoagulation on D/C (8) DVT prophylaxis Current Visit: Yes Status: Acute Code(s): GFL8038 - SNOMED Code(s): 546360549 Comment: -As above -On Heparin gtt Status and Disposition: -As above
[2018-09-14 17:47] VITALS: BP 103/72
--- NOTE | 2018-09-14 18:59 | DS ---
TRANSFER/DISCHARGE SUMMARY: DATE OF ADMISSION: 09/09/18 DATE OF DISCHARGE: 09/14/18 FINAL DISCHARGE DIAGNOSES: 1. Non-ST elevation myocardial infarction. 2. Coronary artery disease. 3. Atrial fibrillation, chronic. 4. Congestive heart failure, systolic, [id number]. 5. Benign prostatic hyperplasia. 6. Chronic kidney disease, stage 3. HOSPITAL COURSE: The patient presented to [facility] on 09/09/18, with a chief complaint of shortness of breath and progressive chest pain, started about 2 weeks prior to presentation, described as chest tightness and dyspnea, was getting worse and worse over time, initially with exertion and lately became with even minimal activity. He came in to the emergency room and he was found to be in rapid AFib with the pulse of 130s and elevated troponin. The patient was given aspirin, started on heparin drip, IV metoprolol, and nitroglycerin was initiated. His EKG at that time did not reveal any ST elevation. The patient was admitted to non-ST elevation [place]. Cardiology was informed and recommended medical therapy and possible catheterization and rate control. The patient remained in our facility and echocardiogram was obtained on 09/09/18, which reveals ejection fraction 25% to 30%, showing severe LV dysfunction as well with LV diastolic dysfunction as well, moderate left atrial dilation, moderate mitral regurgitation. On 09/13/18, the patient was seen by GI as well for his anemia and he underwent upper endoscopy, EGD, which shows both gastric and duodenal erosion of ulcers, no active bleed, and it was recommended by GI to maintain him on Protonix 40 mg IV b.i.d., discontinue all NSAIDs including his Aleve that he was taking at home. Biopsy was obtained of his ulcers and results are pending. He underwent cardiac catheterization by Dr. Schwab today, 09/14/18, which reveals positive 3-vessel disease. Official report still pending and recommended to transfer the patient for a higher level facility for evaluation by cardiothoracic surgeon. The patient was given the option and he elected [facility]. Dr. Howard did speak with Dr. Sheikh, Cardiothoracic, who kindly accepted the patient and acutely awaiting transport. INPATIENT DIAGNOSTIC STUDY: Echocardiogram on 09/09/18, EF 25%-30% and diastolic dysfunction and moderate mitral regurg. Ultrasound of the kidney shows no hydronephrosis. Ultrasound of his upper extremity shows left upper extremity thrombosis suggestive of thrombophlebitis. Cardiac catheterization on 09/14/18. EGD on 09/13/18. TRANSFER MEDICATIONS: The patient will be transferred on the followin. Aspirin 325 daily. 2. Lipitor 80 at bedtime. 3. Proscar 5 mg daily. 4. Lasix 80 mg q.12. 5. Heparin drip as per protocol. 6. 12.5 daily. 7. Metoprolol 50 b.i.d. 8. Protonix 40 mg IV b.i.d. 9. Hytrin mg at bedtime. DISPOSITION: The patient will be transferred via ALS with the heparin drip to [facility]. Accepting physician, Dr. Sheikh. [id number]/[facility] #: [id number] MTDD
--- NOTE | 2018-09-14 22:01 | CATH ---
CARDIAC CATHETERIZATION REPORT: DATE OF PROCEDURE: 09/14/18 - ROOM #ICU-09 PROCEDURE: Cardiac catheterization including left heart catheterization, coronary angiography. INDICATION: Cardiomyopathy, atrial fibrillation. HISTORY: The patient is a 78-year-old gentleman with a history of chronic atrial fibrillation who is admitted to the hospital with congestive heart failure. The patient had an echocardiogram early in his hospitalization which showed an ejection fraction of 25% with moderate mitral regurgitation. The patient also had significant anemia. The patient underwent an endoscopy yesterday which showed small ulcers, but no bleeding ulcers. Cardiac catheterization was recommended. DESCRIPTION OF PROCEDURE: The patient was brought to the cardiac catheterization lab in a fasting state. Informed consent had been obtained prior to the procedure. All labs had been reviewed. The patient had been off heparin for 6 hours. The patient's right radial area was prepped and draped in the usual fashion. Lidocaine 1%was used for local anesthesia. The radial artery was entered by a Seldinger technique and a guidewire was placed. Over the guidewire, a 6-Bolivian hydrophilic sheath was placed and infusion of heparin , nitroglycerin, and verapamil was given. The patient underwent cardiac catheterization using a 6-Bolivian TIG catheter and a 6-Bolivian JR4 catheter. At the end of the procedure, all sheaths and catheters were removed. The patient tolerated the procedure well with no complications. A total of 75 cc of Omnipaque dye was used. A total of 5 minutes of fluoro time was used. FINDINGS: Central aortic blood pressure was 100/60. Left ventricular pressure 100 over end-diastolic pressure of 20. CORONARY ARTERIES: 1. Left main: The left main was normal in size. It had heavy calcification at the ostial area. It quickly bifurcated into the LAD and circumflex artery. There appeared to be an ostial 80% stenosis to the left main artery. 2. Left anterior descending artery: The LAD had a proximal 80% stenosis. The LAD itself was occluded in its mid vessel. It did give off a very large septal [employer] executive branch. There was 1 diagonal vessel without significant disease. 3. Left circumflex artery: The circumflex artery was normal in size. It gave off 1 large branching obtuse marginal. The proximal circumflex artery was without disease. The large first obtuse marginal was without disease. The circumflex itself had a mid 90% stenosis and gave off a distal obtuse marginal. 4. Right coronary artery: The RCA was a large dominant vessel giving off to the PDA. The RCA was occluded in its proximal vessel with bridging collaterals to itself. The remainder of the RCA and the PDA were without disease. IMPRESSION: 1. 80% ostial left main stenosis. 2. Occluded left anterior descending in the mid vessel. 3. 90% stenosis to the proximal left anterior descending artery. 4. 90% mid circumflex lesion. 5. 100% occlusion to the proximal right coronary artery with bridging collaterals. RECOMMENDATION: The patient will be considered for coronary bypass surgery. [id number]/[facility] #: [id number] LAZARA
[2018-09-15 09:37] LABS: Albumin 2.6 g/dL (3.4-4.7); Albumin/Globulin Ratio 0.91; Total Protein(PEP) 5.5 g/dL (6.3 - 7.9)
[2018-09-15 12:25] LABS: Methylmalonic Acid 0.41 nmol/mL (<=0.40)
[2018-09-17 14:43] LABS: Total Protein(PEP) Urine <4 mg/dL
== END 2018-09-14 17:49 | disposition short-term general hospital (02) | DRG 280 ==
LOC: ED 13:47 → ICU 16:36
PROVIDERS: ADMIT Student in an Organized Health Care Education/Training Program; ATTEND Internal Medicine
PROC: 0DD68ZX Extraction of Stomach, Via Natural or Artificial Opening Endoscopic, Diagnostic (ICD-10-PCS; principal; 2018-09-13)
PROC: 4A023N7 Measurement of Cardiac Sampling and Pressure, Left Heart, Percutaneous Approach (ICD-10-PCS; 2018-09-14)
PROC: B211YZZ Fluoroscopy of Multiple Coronary Arteries using Other Contrast (ICD-10-PCS; 2018-09-14)
DX: I21.4 Non-ST elevation (NSTEMI) myocardial infarction (principal); I50.23 Acute on chronic systolic (congestive) heart failure; I13.0 Hypertensive heart and chronic kidney disease with heart failure and stage 1 through stage 4 chronic kidney disease, or unspecified chronic kidney disease; I82.619 Acute embolism and thrombosis of superficial veins of unspecified upper extremity; N17.9 Acute kidney failure, unspecified; T80.1XXA Vascular complications following infusion, transfusion and therapeutic injection, initial encounter; I42.9 Cardiomyopathy, unspecified; K26.9 Duodenal ulcer, unspecified as acute or chronic, without hemorrhage or perforation; I80.8 Phlebitis and thrombophlebitis of other sites; N18.3 Chronic kidney disease, stage 3 (moderate); I48.2 Chronic atrial fibrillation; D64.9 Anemia, unspecified; I27.20 Pulmonary hypertension, unspecified; I34.0 Nonrheumatic mitral (valve) insufficiency; N40.0 Benign prostatic hyperplasia without lower urinary tract symptoms; I25.10 Atherosclerotic heart disease of native coronary artery without angina pectoris; K25.9 Gastric ulcer, unspecified as acute or chronic, without hemorrhage or perforation; E78.00 Pure hypercholesterolemia, unspecified; F17.210 Nicotine dependence, cigarettes, uncomplicated; X58.XXXA Exposure to other specified factors, initial encounter; Y92.230 Patient room in hospital as the place of occurrence of the external cause; M19.049 Primary osteoarthritis, unspecified hand; E66.9 Obesity, unspecified; Z96.653 Presence of artificial knee joint, bilateral; Z88.5 Allergy status to narcotic agent; Z68.28 Body mass index [BMI] 28.0-28.9, adult; Z80.3 Family history of malignant neoplasm of breast; Z82.5 Family history of asthma and other chronic lower respiratory diseases; Z81.2 Family history of tobacco abuse and dependence; Z79.2 Long term (current) use of antibiotics; Z79.1 Long term (current) use of non-steroidal anti-inflammatories (NSAID); Z79.82 Long term (current) use of aspirin; Z79.899 Other long term (current) drug therapy
CPT/HCPCS: 36415; 36600; 71046; 76770; 80048; 80053; 80061; 81003; 81015; 82270; 82565; 82570; 82607; 82728; 82746; 82803; 83036; 83540; 83550; 83605; 83735; 83880; 83921; 84100; 84155; 84156; 84165; 84166; 84443; 84484; 84520; 84540; 85025; 85027; 85045; 85610; 85730; 87040; 87077; 87086; 87641; 90732; 93005; 93306; 93458; 99156; 99157; 99285; A9270-GY; C1887; C8929; J1160; J1644; J1940; J2250; J3010; J3490

== ENCOUNTER 2018-12-15 11:42 | Day surgery (SDC) | payer MEDICARE ==
[~2018-12-15 11:42] MED LIST: Buffered Lidocaine 1% SYRIN* 1 ML/SYRINGE INTRADERM ONE; Dexamethasone IV* 4 MG/ML 1 ML (4 MG) IV SLOW PU ONE; Lactated Ringers 1000 ML Bag* 1,000 ML IV SCH
[2018-12-15] MEDS ORDERED: fentaNYL* 50 MCG/ML 2 ML VIAL (100 MCG VIAL) ONE (12:05)
[2018-12-15] MEDS ORDERED: KETAMINE HCL* 50 MG/ML 10 ML VIAL ONE (12:05)
[2018-12-15] MEDS ORDERED: Midazolam* 1 MG/ML 2 ML VIAL (2 MG) ONE (12:05)
[2018-12-15] MEDS ORDERED: Rocuronium* 10 MG/ML VIAL ONE (12:05)
[2018-12-15] MEDS ORDERED: Lidocaine 2% PF * 5 ML VIAL ONE (12:08)
[2018-12-15] MEDS ORDERED: Methylene Blue 0.5 %* 50 MG/10 ML AMP IV ONE (12:58)
[2018-12-15] MEDS ORDERED: Bupivacaine 0.25% W/EPI* 10 ML SDV ONE (12:59)
[2018-12-15] MEDS ORDERED: Gelfoam 12-7 ADSORBABL SPONGE* 1 EA SPONGE ONE (12:59)
[2018-12-15] MEDS ORDERED: Dexamethasone IV* 4 MG/ML 1 ML (4 MG) ONE (13:00)
[2018-12-15] MEDS ORDERED: Ondansetron INJ* 2 MG/ML VIAL ONE (14:12)
[2018-12-15] MEDS ORDERED: Sugammadex * 500 MG/5 ML VIAL IV PUSH ONE (14:13)
[2018-12-15] MEDS ORDERED: Naloxone* 0.4 MG/ML 1 ML VIAL IV PRN (14:24)
[2018-12-15] MEDS ORDERED: oxyCODONE/Acetamin 5/325 MG* TAB PO PRN (14:24)
[2018-12-15] MEDS ORDERED: fentaNYL* 50 MCG/ML 2 ML VIAL (100 MCG VIAL) IV PRN (14:24)
[2018-12-15] MEDS ORDERED: Ibuprofen TAB* 600 MG PO PRN (14:24)
[2018-12-15] MEDS ORDERED: Acetaminophen TAB* 325 MG PO PRN (14:24)
[2018-12-15] MEDS ORDERED: DiMENhydriNATE IV* 50 MG/ML VIAL IV PUSH PRN (14:24)
--- NOTE | 2018-12-15 14:29 | BRIEFOPN ---
Brief Operative Note - Surgery Procedures: Procedures Pre-OP Diagnoses: anal pain Post-op Diagnosis: fistula in ano, anal skin lesion Procedure: exam under anesthesia, fistulotomy, biopsy x2 Surgeon: Sangeeta Asst: none Anethesia: GABE Guerra EBL: minimal IVF: minimal Specimen: hermila anal skin lesions x2 Drains: none Complications: None
[2018-12-15 14:48] VITALS: BP 145/86
--- NOTE | 2018-12-15 23:03 | OP ---
CC: Di Govea NP * DATE OF OPERATION: 12/15/18 - [facility] DATE OF : 44 SURGEON: Atilio Rutherford MD BRAZING MACHINE SETTER: None. ANESTHESIOLOGIST: Dr. Morgan. ANESTHESIA: General anesthesia. PRE-OP DIAGNOSIS: Perianal pain. 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 OPERATIVE PROCEDURE: Exam under anesthesia, fistulotomy and biopsies of perianal lesions x2. ESTIMATED BLOOD LOSS: Minimal. FLUIDS: Minimal crystalloid fluid given. SPECIMEN: Skin lesions. DESCRIPTION OF PROCEDURE: The patient was identified in the preoperative area, case discussed. Consent was signed. He was brought to the operating room, intubated on the OR stretcher after the placement of sequential devices. He was then placed prone on the OR table. Preoperative antibiotics were given. The patient was positioned appropriately in [place]knife prone area, but being short to protect all standard pressure points. His buttocks were then taped apart and the anus was prepped and draped. A time-out was performed. I reviewed the perianal area. It showed a couple of benign appearing skin lesions consistent with skin tags. These were somewhat large, one at the 4 o' clock region showed mild ulceration. The patient had 2 small imprints, 1 appeared to be opening of a fistula. The other one appeared to fully epithelialize over and possibly had been one. Next, a digital rectal exam was performed. We dilated the anus to 2 fingers, already it started bleeding from just a simple attempt. We then placed an anoscopy, anal retractors in and could easily identify the internal opening of the anal fistula. This was posterior, very short segment and superficial. We then cut over this to unroof it making sure not to cut any musculature. We gained hemostasis with some cautery at the site and then reviewed the rest of the anus and found no other ulcerations, no fissure and then we reviewed the other imprint area also posteriorly. Again, this appeared fully epithelialized and we could not pass the lacrimal probe through this. Next, the 2 skin lesions 1 at 11 o'clock and 1 at 5 o'clock were biopsied making sure to peanut picker the portion of the ulceration at the 5 o'clock one and then the Gelfoam was placed into perianal area and the patient was woken up and transferred to the PACU in stable condition. [id number]/[facility] #: [id number] MTDD
== END 2018-12-15 16:30 | disposition home or self-care (01) ==
LOC: OR 11:42
PROVIDERS: ATTEND Surgery
DX: K60.3 Anal fistula (principal); K64.4 Residual hemorrhoidal skin tags; I25.10 Atherosclerotic heart disease of native coronary artery without angina pectoris; Z87.891 Personal history of nicotine dependence; Z79.82 Long term (current) use of aspirin
CPT/HCPCS: 88304; A9270-GY; J1100; J2250; J2405; J3010

== ENCOUNTER 2019-02-03 11:02 | Emergency (ER) | payer MEDICARE, OTHER ==
[2019-02-03 12:07] LABS: ABS Basophils 0.1 10^3/ul (0-0.2); ABS Eosinophils 0.1 10^3/ul (0-0.6); ABS Lymphocytes 1.7 10^3/ul (1.0-4.8); ABS Monocytes 0.9 10^3/ul (0-0.8); Eosinophil % 1.1 %; Hematocrit 34 % (42-52); Hemoglobin 11.4 g/dL (14.0-18.0); Lymphocyte % 14.3 %; Mean Corpuscular HGB Conc 34 g/dL (31-36); Mean Corpuscular Hemoglobin 34 pg (27-31); Mean Corpuscular Volume 99 fL (80-94); Mean Platelet Volume 6.3 fL (7.4-10.4); Platelet Count 511 10^3/uL (150-450); Red Blood Count 3.41 10^6 /uL (4.18-5.48); Red Cell Distribution Width 14 % (10-15); White Blood Count 11.7 10^3/uL (3.5-10.8)
[2019-02-03 12:14] LABS: INR 1.13 (0.82-1.09)
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
[2019-02-03 12:28] LABS: Troponin I 0.01 ng/mL (<0.04)
[2019-02-03 12:56] LABS: Albumin 3.6 g/dL (3.2-5.2); Calcium 9.3 mg/dL (8.6-10.3); Potassium 4.7 mmol/L (3.5-5.0); Total Bilirubin 0.8 mg/dL (0.2-1.0)
[2019-02-03 13:02] LABS: Albumin/Globulin Ratio 1.1 (1-3); BUN/Creatinine Ratio 31.3 (8-20); EGFR African American 65.9 (>60); EGFR Non-African American 54.5 (>60); Globulin 3.4 g/dL (2-4)
[2019-02-03] MEDS ORDERED: Iodixanol* (CONTRAST) 320 MG/ML 100 ML SDV IV ONE (13:04)
[2019-02-03 15:05] VITALS: BP 124/86
== END 2019-02-03 15:04 | disposition home or self-care (01) ==
LOC: ED 11:02
DX: S20.219A Contusion of unspecified front wall of thorax, initial encounter (principal); V43.52XA Car driver injured in collision with other type car in traffic accident, initial encounter; Y92.410 Unspecified street and highway as the place of occurrence of the external cause; R94.31 Abnormal electrocardiogram [ECG] [EKG]; I48.91 Unspecified atrial fibrillation; I11.0 Hypertensive heart disease with heart failure; I50.9 Heart failure, unspecified; I25.10 Atherosclerotic heart disease of native coronary artery without angina pectoris; Z88.5 Allergy status to narcotic agent; E78.00 Pure hypercholesterolemia, unspecified; K58.9 Irritable bowel syndrome, unspecified; N40.0 Benign prostatic hyperplasia without lower urinary tract symptoms; M19.90 Unspecified osteoarthritis, unspecified site; Z79.899 Other long term (current) drug therapy; Z95.1 Presence of aortocoronary bypass graft; Z87.891 Personal history of nicotine dependence; Z95.2 Presence of prosthetic heart valve
CPT/HCPCS: 36415; 71260; 80053; 84484; 85025; 85610; 93005; 99284; Q9967

== ENCOUNTER 2019-03-30 05:55 | Observation (INO) | payer MEDICARE, OTHER ==
--- NOTE | 2019-03-15 14:49 | HP ---
AMENDED REPORT NOW INCLUDES DESIGNATED COSIGNER CC: Di Govea, JOAQUIM * ADMISSION HISTORY AND PHYSICAL: DATE OF ADMISSION: 03/30/19 DATE OF SERVICE: 03/15/19 ATTENDING PHYSICIAN: Dr. Atilio Rutherford * (dictated by Fiordaliza Osei NP). CHIEF COMPLAINT: Perianal pain. HISTORY OF PRESENT ILLNESS: The patient is a 79-year-old male who first presented to [facility] in November of this year with a 6-week history of perianal burning and discomfort. He underwent exam under anesthesia and fistulotomy and biopsy of 2 benign perianal lesions by Dr. Rutherford, 12/15/18. He returned more recently in January with continued perianal pain. He states that his stools are soft, but after having a bowel movement, he has pain and stinging for 6 to 7 hours after the bowel movement. He has not noticed any blood in the stool. He does have a good appetite and his weight has been stable. Dr. Rutherford examined the patient and he has an anal fissure at the 12 o' clock position that is exquisitely tender. Therefore, Dr. Rutherford has recommended open lateral internal sphincterotomy and the patient wishes to proceed. Dr. Rutherford explained the nature of the surgical procedure, the relevant risks and benefits and today I have reviewed the expected postoperative care and recovery. The patient has had a chance to ask questions and stated that he understands the information and is satisfied with the answers given to his questions. He will sign surgical consent on the day of surgery. PAST MEDICAL HISTORY: 1. Coronary artery disease. 2. Gastric and duodenal erosions without active bleeding seen on EGD, August 2018. 3. Chronic atrial fibrillation. PAST SURGICAL HISTORY: Exam under anesthesia and anal fistulotomy 12/15/[address] Rutherford; coronary artery bypass graft x3 August 2018; total knee bilateral knee replacements 2005. MEDICATIONS: 1. Carvedilol 12.5 mg one-half tablet p.o. b.i.d. 2. Spironolactone 25 mg p.o. daily. 3. Aspirin 325 mg p.o. daily which he will hold for 4 days preoperatively. 4. Atorvastatin 80 mg p.o. daily at bedtime. 5. Furosemide 40 mg p.o. daily in the morning. 6. Famotidine 20 mg p.o. b.i.d. 7. Multivitamin p.o. daily. 8. Metamucil daily. ALLERGIES: CODEINE causes itching. FAMILY HISTORY: Father due to motor vehicle accident. Mother due to stroke. No known anesthesia complications or clotting disorders in the family. SOCIAL HISTORY: He is ; he follows a low salt diet. He is a former smoker. He denies the use of alcohol or other substances and walks daily for exercise. REVIEW OF SYSTEMS: Constitutional: No fevers, chills, excessive fatigue or weight loss. Endocrine: No diabetes or thyroid disease. Hematologic: No easy bruising or bleeding. No history of blood transfusions. Respiratory: No dyspnea on exertion. No chronic cough. Cardiovascular: No anginal chest pain or palpitations. Please see the attached recent cardiology followup note from Dr. Lee Shepherd dated 01/11/19. Echocardiogram in December 2018 revealed ejection fraction of 40%. Gastrointestinal: No nausea or vomiting. No blood in the stools. His stools are soft. Anal fissure symptoms as described in history of present illness. Genitourinary: No dysuria. Musculoskeletal: Normal strength and tone. Neurologic: No headache or blurred vision. No area of focal weakness. Normal gait. General: No history of deep vein thrombosis or pulmonary embolism. No previous anesthesia complications. PHYSICAL EXAMINATION GENERAL SURVEY: The patient is a 79-year-old male, well-developed, well- nourished in no acute distress. VITAL SIGNS: Height 69.5 inches, weight 173 pounds, body mass index 25.2. Blood pressure 122/70, pulse 72 and irregularly irregular, respiratory rate 16, temperature 97.4. HEENT: Benign. NECK: Supple. No cervical lymphadenopathy. LUNGS: Breath sounds bilaterally clear and equal. CHEST: Well healed sternotomy. HEART: Irregularly irregular. No significant murmur. ABDOMEN: Active bowel sounds. Soft, nontender, nondistended. No obvious masses or organomegaly or evidence of ventral hernia. RECTAL: Exam done by Dr. Rutherford revealed anal fissure at the 12 o'clock position , exquisitely tender. GENITALIA: Differed. EXTREMITIES: Warm without edema or skin ulceration. Full rage of motion. NEUROLOGIC: Alert and oriented x3. Steady gait. SKIN: Warm, dry, intact. IMPRESSION: Chronic anal fissure. PLAN: Same day surgery admission to Dr. Rutherford's service on 03/30/19 for lateral internal sphincterotomy. VISHAL OSEI, SENIOR STRATEGY MANAGER [id number]/[facility] #: [id number] LAZARA
[~2019-03-30 05:55] MED LIST changes: -Dexamethasone IV* 4 MG/ML 1 ML (4 MG) IV SLOW PU ONE; -Lactated Ringers 1000 ML Bag* 1,000 ML IV SCH
[2019-03-30] MEDS ORDERED: Lactated Ringers 1000 ML Bag* 1,000 ML IV SCH (06:00)
[2019-03-30] MEDS ORDERED: Buffered Lidocaine 1% SYRIN* 1 ML/SYRINGE INTRADERM ONE (06:32)
[2019-03-30] MEDS ORDERED: ceFOXitin 2 GM IVPREMIX* 2 GM/50 ML BAG IVPB ONE (07:00)
[2019-03-30] MEDS ORDERED: Bupivacaine 0.25% EPI 200,000* 30 ML SDV ONE (07:29)
[2019-03-30] MEDS ORDERED: Methylene Blue 0.5 %* 50 MG/10 ML AMP IV ONE (07:29)
[2019-03-30] MEDS ORDERED: Gelfoam Sponge SIZE 100* SPONGE ONE (07:29)
[2019-03-30] MEDS ORDERED: Propofol* 10 MG/ML 20 ML BTL ONE (07:53)
[2019-03-30] MEDS ORDERED: fentaNYL* 50 MCG/ML 2 ML VIAL (100 MCG VIAL) ONE (07:53)
[2019-03-30] MEDS ORDERED: Rocuronium* 10 MG/ML VIAL ONE (07:54)
[2019-03-30] MEDS ORDERED: Lidocaine 2% PF * 5 ML VIAL ONE (07:55)
[2019-03-30] MEDS ORDERED: Dexamethasone IV* 4 MG/ML 1 ML (4 MG) ONE (08:36)
[2019-03-30] MEDS ORDERED: Neostigmine Methylsulfate* 1 MG/ML 10 ML VIAL (1 mg/ml) ONE (08:52)
[2019-03-30] MEDS ORDERED: Glycopyrrolate IV* 0.2 MG/ML 1 ML VIAL ONE (08:52)
[2019-03-30] MEDS ORDERED: Naloxone* 0.4 MG/ML 1 ML VIAL IV PRN (09:32)
[2019-03-30] MEDS ORDERED: fentaNYL* 50 MCG/ML 2 ML VIAL (100 MCG VIAL) IV PRN (09:32)
[2019-03-30] MEDS ORDERED: Ondansetron INJ* 2 MG/ML VIAL IV PRN (09:32)
[2019-03-30] MEDS ORDERED: LORazepam INJ* 2 MG/ML 1 ML VIAL IV PUSH ONE ×2 (10:06→11:00)
--- NOTE | 2019-03-30 11:23 | CONS ---
NEUROLOGY CONSULTATION: DATE OF CONSULTATION: 03/30/19 SURGEON: Atilio Rutherford MD. ANESTHESIOLOGIST: Nabil Martell MD. LOCATION: He is an inpatient in the PACU currently. CHIEF COMPLAINT: Involuntary shaking. HISTORY OF PRESENT ILLNESS: Abner Rowell is a 79-year-old right-handed man who just underwent re pair of an anal fissure. In the postoperative recovery area he started to exhibit generalized shakin g. I was asked to see him in evaluation. His is present at the bedside. He has no history of tremors and no history of epilepsy. He received fentanyl, lidocaine, naloxone, bupivacaine with epi nephrine, dexamethasone, Robinul, neostigmine, propofol, and rocuronium for anesthesia. He is listed as having allergy to CODEINE. Abner is awake and fairly alert. He is a little slow to respond, but he responds reliably. He denies feeling chills or any extremity pain. He is aware that he is havin g involuntary movements. PAST MEDICAL HISTORY: Notable for coronary artery disease, gastric and duodenal ulcers, chronic atri al fibrillation, anal fistulotomy in November of 2018, coronary artery bypass grafting in August 2018, bilateral total knee replacements. MEDICATIONS: Medications at home consisted of: 1. Carvedilol 12.5 mg one-half tablet p.o. b.i.d. 2. Spironolactone 25 mg p.o. daily. 3. Aspirin 325 mg p.o. daily. 4. Atorvastatin 40 mg p.o. daily. 5. Furosemide 40 mg p.o. daily. 6. Famotidine 20 mg p.o. b.i.d. 7. Metamucil. ALLERGIES: He is allergic to CODEINE, which cause itching. REVIEW OF SYSTEMS: Currently negative for headaches. He denies any pain. He denies nausea. He parham s not feel chilled. PHYSICAL EXAMINATION: He is well-nourished and appears well hydrated. His heart rate is in the 70s on the monitor and sinus. Blood pressure is about 130/70, he is afebrile. Heart tones are normal. Oral mucosa is moist. Neurological Exam: Pupils react equally from 3 down to 2 mm. Eye movements are normal and there is no nystagmus. Facial musculature is symmetric. Facial sensation to light touch is intact and symmet kingsley. He has antigravity strength in all extremities. He has hyperactive reflexes in the upper extre mities and at the knees, and absent at the ankles. Plantar responses are flexor bilaterally. He has intermittent high amplitude rigors in both upper extremities and his truncal muscles as well. It goes away with any voluntary movement. When asked to do a [id number] maneuver, there is no tremor, although movements are slow. Finger taps are slow, but symmetrical and, again, not accompanie d by tremors. He has episodic generalized whole body shaking, which again resolves with any volition al movements. He is able to answer questions appropriately and he is oriented to person and place. His language is slow, but fluent. DIAGNOSTIC STUDIES/LAB DATA: There is no recent laboratory studies to review. IMPRESSION: Impression is that of a generalized rigors, probably as a side effect of medications or coming off of the medications. I suspect the local anesthetics plus or minus the epinephrine and the steroids are most likely agents. I ordered 2 mg of lorazepam intravenously and that was given. His involuntary movement subsided. An EEG has been ordered and that will be done within the hour. I do not think he is having seizures, ho wever. I will continue to monitor him along with you. [id number]/[facility] #: [id number]
[2019-03-30] MEDS ORDERED: Ibuprofen TAB* 600 MG PO PRN (11:33)
[2019-03-30] MEDS ORDERED: Lorazepam PYXIS KEY PRN (13:53)
--- NOTE | 2019-03-30 14:55 | EEG ---
ELECTROENCEPHALOGRAM REPORT: DATE OF STUDY: - ROOM #336 LOCATION: He is in the postoperative care unit. REFERRING PROVIDER: Fiordaliza Slaughter NP * CLINICAL PROBLEM: Generalized shaking postoperatively. The patient received anesthesia which included local anesthetics and neuromuscular kurtis. There is no history of seizures. REPORT: This 19-channel EEG is remarkable for background rhythms consisting of a reasonably well-formed alpha rhythm in the posterior derivations at 8 to 9 cycles per second which is symmetric and suppressed by eye opening. Abundant moderate voltage beta rhythms are seen bifrontally. The patient is clinically awake. The patient has a couple of episodes of generalized shaking with some movement artifact, but no electrographic abnormalities. There are no other clinical events. There are no focal or epileptiform abnormalities. CLINICAL IMPRESSION: Normal awake EEG other than excessive beta activity consistent with benzodiazepine effect. There are no epileptiform features to this recording including during shaking spells. [id number]/[facility] #: [id number] MTDD
[2019-03-30 18:08] LABS: Urine Appearance Clear; Urine Bacteria Absent (Absent); Urine Bilirubin Negative (Negative); Urine Blood Negative (Negative); Urine Color Yellow; Urine Glucose 1+(50 mg/dL) (Negative); Urine Ketones Negative (Negative); Urine Nitrite Negative (Negative); Urine Protein Negative (Negative); Urine Red Blood Cell Trace(0-2/hpf) (Absent); Urine Specific Gravity 1.015 (1.010-1.030); Urine Urobilinogen Negative (Negative); Urine White Blood Cell 2+(11-20/hpf) (Absent)
[2019-03-30] MEDS: Carvedilol TAB* 6.25 MG PO SCH (20:40)
[2019-03-30] MEDS: Famotidine TAB* 20 MG PO SCH (20:40)
[2019-03-30] MEDS ORDERED: Atorvastatin* 80 MG TAB PO SCH (21:00)
--- NOTE | 2019-03-30 22:52 | OP ---
CC: Dr. Joseph High * DATE OF OPERATION: 03/30/19 - ROOM #336 DATE OF : 44 SURGEON: Atilio Rutherford MD REGULATORY SUBMISSIONS SPECIALIST: Ms. Slaughter. ANESTHESIOLOGIST: Dr. Martell. ANESTHESIA: General anesthesia. PRE-OP DIAGNOSIS: Chronic anal fissure. POST-OP DIAGNOSIS: Chronic anal fissure. OPERATIVE PROCEDURE: Open lateral internal sphincterotomy. ESTIMATED BLOOD LOSS: Minimal blood loss. FLUIDS: No crystalloid fluid given. SPECIMEN: None. DRAINS: None. COMPLICATIONS: In the PACU, the patient was found to have hyperactivity with shaking of the hands and arms and Neurology was contacted and the patient was evaluated and admitted. DESCRIPTION OF PROCEDURE: The patient was identified in the preoperative area. Consent was signed. He was then taken back to the operating room, placed in the operating table in prone position after intubation. The patient was buttocks were taped apart. Preoperative antibiotics were given and the patient' s perianal area was then prepped and draped in the standard surgical fashion. A time-out was performed. Dilation of the anus was then carried out with two surgeon's fingers. We then placed an anal retractor and reviewed the anal canal. There was no internal hernia. There was a small external skin tag and we saw an approximately subcentimeter anal fissure at the posterior aspect. There was a small opening at approximately 11 o'clock. I placed a lacrimal probe to this area to see if it was a sinus tract but it was not. It was more of a dimpling in the perianal skin. Next, we identified the intersphincteric groove, injection of lidocaine with epinephrine was carried out at this site. The perianal skin and mucosa was incised at this area and we dissected out the internal anal sphincter. Once this was isolated, I cauterized approximately a third of the muscular fibers with the cautery. Hemostasis was excellent. The sphincter was dropped back into the site and we cauterized the fissure as well. Small skin tag was then excised as well with the cautery. Attention was turned towards the incision. This was reapproximated with a 3-0 chromic suture. We then placed Gelfoam in the anus and woke the patient up and transferred to the PACU in stable condition where he had questionable seizure activity and the patient was admitted for this purpose. [id number]/[facility] #: [id number] MTDD
[2019-03-31 07:21] VITALS: BP 121/57
[2019-03-31] MEDS: Famotidine TAB* 20 MG PO SCH (07:52)
[2019-03-31] MEDS: Carvedilol TAB* 6.25 MG PO SCH (07:52)
[2019-03-31] MEDS ORDERED: Furosemide TAB* 40 MG PO SCH (09:00)
[2019-03-31] MEDS ORDERED: Aspirin TAB* 325 MG PO SCH (09:00)
[2019-03-31] MEDS ORDERED: Spironolactone TAB* 25 MG PO SCH (09:00)
--- NOTE | 2019-03-31 12:38 | DS ---
CC: Di Govea NP * DISCHARGE SUMMARY: DATE OF ADMISSION: 03/30/19 DATE OF DISCHARGE: 03/31/19 ATTENDING PHYSICIAN: Dr. Atilio Rutherford.* (DICTATED BY JAYLEN MARQUEZ) HOSPITAL COURSE: Please refer to admission history and physical and operative note for details. 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 The surgery itself was uneventful. However, in the recovery area, he was demonstrating involuntary movements and was consulted by neurology (see separate consult from Dr. High). He was given IV lorazepam. It was presumed that this was the result of medications given during surgery. This seemed to resolve. The patient was kept overnight for observation and he has had no further similar activity. As of the morning of discharge, he was feeling well with minimal discomfort. He has already had a bowel movement. He states that there was a small amount of blood with the stool. His temperature is 99.2, blood pressure 121/57, pulse 77, respirations 14, room air saturation 97%. He had an indwelling Amador catheter overnight, but has voided this morning on his own. DISCHARGE INSTRUCTIONS: Per communication with Dr. High, no further neurological followup is necessary. He has a followup already scheduled in our office. Instructions were reviewed regarding wound care, diet, and activity. He will resume all of his usual home medications (see medication reconciliation form). DISPOSITION: He is discharged to home in good condition. JAYLEN MARQUEZ [id number]/[facility] #: [id number] MTDD
== END 2019-03-31 11:59 | disposition home or self-care (01) ==
LOC: OR 05:55 → SSU 13:13
PROVIDERS: ADMIT Surgery; ATTEND Surgery
PROC: 0DBR0ZZ Excision of Anal Sphincter, Open Approach (ICD-10-PCS; 2019-03-30)
PROC: 0D8R0ZZ Division of Anal Sphincter, Open Approach (ICD-10-PCS; principal; 2019-03-30 07:30)
DX: K60.2 Anal fissure, unspecified (principal); I25.10 Atherosclerotic heart disease of native coronary artery without angina pectoris; K25.9 Gastric ulcer, unspecified as acute or chronic, without hemorrhage or perforation; K26.9 Duodenal ulcer, unspecified as acute or chronic, without hemorrhage or perforation; I48.2 Chronic atrial fibrillation; Z79.899 Other long term (current) drug therapy; Z79.82 Long term (current) use of aspirin; Z95.1 Presence of aortocoronary bypass graft; Z96.653 Presence of artificial knee joint, bilateral; Z87.891 Personal history of nicotine dependence; R68.89 Other general symptoms and signs; K60.1 Chronic anal fissure
CPT/HCPCS: 81003; 81015; 87086; 95816; A9270-GY; G0378; J0694; J1100; J2060; J2704; J2710; J3010

== ENCOUNTER 2020-05-18 10:30 | Inpatient (IN) ==
[2020-05-18 11:36] LABS: ABS Basophils 0.1 10^3/ul (0-0.2); ABS Eosinophils 0.1 10^3/ul (0-0.6); ABS Monocytes 0.7 10^3/ul (0-0.8); ABS Neutrophils 8.5 10^3/ul (1.5-7.7); Eosinophil % 1.3 %; Hematocrit 21 % (42-52); Hemoglobin 7.5 g/dL (14.0-18.0); Lymphocyte % 9.5 %; Mean Corpuscular HGB Conc 36 g/dL (31-36); Mean Corpuscular Hemoglobin 37 pg (27-31); Mean Corpuscular Volume 104 fL (80-94); Mean Platelet Volume 6.2 fL (7.4-10.4); Nucleated Red Blood Cells % 0.1; Platelet Count 529 10^3/uL (150-450); Red Blood Count 2.02 10^6 /uL (4.18-5.48); Red Cell Distribution Width 17 % (10-15); White Blood Count 10.4 10^3/uL (3.5-10.8)
[2020-05-18 11:43] LABS: INR 1.29 (0.82-1.09)
[2020-05-18 11:54] LABS: Albumin 3.9 g/dL (3.2-5.2); Anion Gap 7 mmol/L (2-11); BUN/Creatinine Ratio 23.2 (8-20); Blood Urea Nitrogen 38 mg/dL (6-24); CO2 Carbon Dioxide 27 mmol/L (22-32); Chloride 106 mmol/L (101-111); EGFR African American 49.4 (>60); EGFR Non-African American 40.8 (>60); Globulin 2.9 g/dL (2-4); Glucose 107 mg/dL (70-100); Potassium 4.9 mmol/L (3.5-5.0); Sodium 140 mmol/L (135-145); Total Protein 6.8 g/dL (6.4-8.9)
[2020-05-18 11:55] LABS: ALT 12 U/L (7-52); AST 19 U/L (13-39); Albumin/Globulin Ratio 1.3 (1-3); Alkaline Phosphatase 106 U/L (34-104)
[2020-05-18 12:23] LABS: Troponin I 0.01 ng/mL (<0.03)
[2020-05-18] MEDS ORDERED: Iodixanol (CONTRAST) 320 MG/ML 100 ML SDV IV ONE (12:30)
[2020-05-18] MEDS ORDERED: Ondansetron 4 mg VIAL 2 MG/ML 2 ml VIAL IV PRN (13:51)
[2020-05-18 14:51] LABS: GGTP 35 U/L (9-64.0)
[2020-05-18 15:04] LABS: Folate > 20.00 ng/mL (>3.99)
[2020-05-18 15:05] LABS: Vitamin B12 502 pg/mL (180-914)
[2020-05-18 16:53] LABS: Hematocrit 23 % (42-52); Hemoglobin 8.2 g/dL (14.0-18.0)
[2020-05-18] MEDS: Pantoprazole VIAL 40 MG VIAL IV SCH ×2 (17:35→20:11)
[2020-05-18] MEDS: NS 0.9% 1000 ml BAG 1,000 ML IV SCH (17:35)
[2020-05-18 23:15] LABS: Hematocrit 20 % (42-52)
[2020-05-19 00:29] LABS: Iron 84 ug/dL (50-212); LDH 310 U/L (140-271)
[2020-05-19 05:09] LABS: ABS Basophils 0.1 10^3/ul (0-0.2); ABS Eosinophils 0.1 10^3/ul (0-0.6); ABS Lymphocytes 0.6 10^3/ul (1.0-4.8); ABS Monocytes 0.5 10^3/ul (0-0.8); ABS Neutrophils 7.2 10^3/ul (1.5-7.7); Eosinophil % 1.5 %; Hematocrit 19 % (42-52); Lymphocyte % 7.4 %; Mean Corpuscular HGB Conc 36 g/dL (31-36); Mean Corpuscular Hemoglobin 38 pg (27-31); Mean Corpuscular Volume 103 fL (80-94); Mean Platelet Volume 5.8 fL (7.4-10.4); Nucleated Red Blood Cells % 0.1; Platelet Count 481 10^3/uL (150-450); Red Blood Count 1.86 10^6 /uL (4.18-5.48); Red Cell Distribution Width 17 % (10-15); White Blood Count 8.5 10^3/uL (3.5-10.8)
[2020-05-19 05:10] LABS: Hematocrit 20 % (42-52); Hemoglobin 6.9 g/dL (14.0-18.0)
[2020-05-19 05:38] LABS: Albumin 3.5 g/dL (3.2-5.2); Albumin/Globulin Ratio 1.3 (1-3); BUN/Creatinine Ratio 22.4 (8-20); Calcium 8.7 mg/dL (8.6-10.3); EGFR African American 56.1 (>60); EGFR Non-African American 46.3 (>60); Globulin 2.7 g/dL (2-4); Indirect Bilirubin 2.2 mg/dL (0.3-1.0); Potassium 4.4 mmol/L (3.5-5.0); Total Bilirubin 2.7 mg/dL (0.2-1.0); Total Protein 6.2 g/dL (6.4-8.9)
[2020-05-19] MEDS: NS 0.9% 1000 ml BAG 1,000 ML IV SCH (09:13)
[2020-05-19] MEDS: Pantoprazole VIAL 40 MG VIAL IV SCH ×2 (09:35→20:09)
[2020-05-19 09:39] LABS: Corrected Retic Count 5.5 % (0.5-1.5); Hematocrit for Retic CNT 19 % (42-52); Immature Retic Fraction 0.65; RBC Retic Count 1.83 10^6/uL (4.18-5.48)
[2020-05-19] MEDS: Witch Hazel PAD JAR TOPICAL SCH (09:45)
[2020-05-20 06:54] LABS: ABS Lymphocytes 0.4 10^3/ul (1.0-4.8); ABS Monocytes 0.2 10^3/ul (0-0.8); ABS Neutrophils 10.5 10^3/ul (1.5-7.7); Corrected Retic Count 6.6 % (0.5-1.5); Hematocrit 22 % (42-52); Hematocrit for Retic CNT 22 % (42-52); Immature Retic Fraction 0.64; Mean Corpuscular HGB Conc 36 g/dL (31-36); Mean Corpuscular Hemoglobin 37 pg (27-31); Mean Corpuscular Volume 103 fL (80-94); Nucleated Red Blood Cells % 0.2; Platelet Count 641 10^3/uL (150-450); RBC Retic Count 2.16 10^6/uL (4.18-5.48); Red Blood Count 2.16 10^6 /uL (4.18-5.48); Red Cell Distribution Width 17 % (10-15); White Blood Count 11.1 10^3/uL (3.5-10.8)
[2020-05-20] MEDS: Pantoprazole VIAL 40 MG VIAL IV SCH ×2 (09:01→20:03)
[2020-05-20] MEDS: Witch Hazel PAD JAR TOPICAL SCH (09:09)
[2020-05-21] MEDS: Pantoprazole VIAL 40 MG VIAL IV SCH (08:10)
[2020-05-21] MEDS: Witch Hazel PAD JAR TOPICAL SCH (08:10)
[2020-05-21 09:01] LABS: ABS Lymphocytes 0.6 10^3/ul (1.0-4.8); ABS Monocytes 0.8 10^3/ul (0-0.8); ABS Neutrophils 17.5 10^3/ul (1.5-7.7); Corrected Retic Count 7.5 % (0.5-1.5); Hematocrit 24 % (42-52); Hematocrit for Retic CNT 24 % (42-52); Hemoglobin 8.3 g/dL (14.0-18.0); Immature Retic Fraction 0.61; Lymphocyte % 3.2 %; Mean Corpuscular HGB Conc 35 g/dL (31-36); Mean Corpuscular Hemoglobin 36 pg (27-31); Mean Corpuscular Volume 103 fL (80-94); Mean Platelet Volume 6.2 fL (7.4-10.4); Platelet Count 647 10^3/uL (150-450); RBC Retic Count 2.33 10^6/uL (4.18-5.48); Red Blood Count 2.33 10^6 /uL (4.18-5.48); Red Cell Distribution Width 17 % (10-15); White Blood Count 18.9 10^3/uL (3.5-10.8)
[2020-05-21] MEDS ORDERED: fentaNYL 100 mcg/2 ml 50 MCG/ML VIAL ONE (14:39)
[2020-05-21] MEDS ORDERED: Midazolam 10 mg/10 ml VIAL 1 mg/ml 10 ml VIAL (10 mg) ONE (14:40)
[2020-05-21 15:41] VITALS: BP 102/42
== END 2020-05-21 17:20 | disposition home or self-care (01) | DRG 809 ==
LOC: ED 10:30 → MED 13:51
PROVIDERS: ADMIT Hospitalist; ATTEND Internal Medicine

== ENCOUNTER 2022-01-02 01:27 | Inpatient (IN) ==
[2022-01-02 02:51] LABS: ABS Basophils 0.1 10^3/ul (0-0.2); ABS Lymphocytes 0.6 10^3/ul (1.0-4.8); ABS Monocytes 1.4 10^3/ul (0-0.8); ABS Neutrophils 17.9 10^3/ul (1.5-7.7); Hematocrit 39 % (42-52); Hemoglobin 13.4 g/dL (14.0-18.0); Lymphocyte % 2.8 %; Mean Corpuscular HGB Conc 34 g/dL (31-36); Mean Corpuscular Hemoglobin 32 pg (27-31); Mean Corpuscular Volume 94 fL (80-94); Mean Platelet Volume 7.6 fL (7.4-10.4); Nucleated Red Blood Cells % 0.2; Platelet Count 343 10^3/uL (150-450); Red Cell Distribution Width 14 % (10-15)
[2022-01-02 03:05] LABS: Albumin 3.4 g/dL (3.2-5.2); Albumin/Globulin Ratio 1.4 (1-3); C Reactive Protein 188.47 mg/L (<8.01); Calcium 8.2 mg/dL (8.6-10.3); Globulin 2.4 g/dL (2-4); Potassium 4.2 mmol/L (3.5-5.0); Total Bilirubin 0.8 mg/dL (0.2-1.0); Total Protein 5.8 g/dL (6.4-8.9); eGFR CKD-EPI 33.7 (>60)
[2022-01-02] MEDS ORDERED: Albuterol 2.5mg/3 ml (0.083%) NEB.SOLN INH ONE (03:09)
[2022-01-02 03:14] LABS: Activated Partial Thrombo Time 31.2 seconds (26.0-38.0); INR 1.37 (0.86-1.15)
[2022-01-02] MEDS ORDERED: cefTRIAXone 1 gm/50 mL D5W 1 GM/50 ML BAG IV ONE (04:32)
[2022-01-02] MEDS: NS 0.9% 1000 ml BAG 2,000 ML IV ONE ×2 (04:34→06:15)
[2022-01-02 04:37] LABS: Urine Appearance Turbid; Urine Bilirubin Negative (Negative); Urine Blood Negative (Negative); Urine Color Amber; Urine Glucose Negative (Negative); Urine Ketones Negative (Negative); Urine Nitrite Negative (Negative); Urine Protein 2+(100 mg/dL) (Negative); Urine Specific Gravity 1.024 (1.002-1.030); Urine Urobilinogen Negative (Negative)
[2022-01-02 04:41] LABS: High Sensitivity Troponin 1 Hr 30 pg/mL (<20)
[2022-01-02] MEDS ORDERED: methylPREDNISolone SOD SUCC 125 mg 2 ML VIAL IV ONE (04:45)
[2022-01-02 05:15] LABS: Urine Bacteria Absent (Absent); Urine Red Blood Cell 3+(>10/hpf) (Absent); Urine Squamous Epithelial Cell Present (Absent); Urine White Blood Cell 3+(>20/hpf) (Absent); Urine Yeast Present (Absent)
[2022-01-02] MEDS ORDERED: Lactated Ringers 1000 ml BAG 1,000 ML IV SCH (06:00)
[2022-01-02] MEDS: Azithromycin 500 mg/250 ml NS 500 MG/250 ML BAG IVPB SCH (06:15)
[2022-01-02] MEDS: Albuterol/Ipratropium NEB.SOL (2.5/0.5 MG) 3 ML NEB.SOLN INH SCH ×4 (07:21→21:07)
[2022-01-02] MEDS: Enoxaparin 40 MG/0.4 ML SYR SUBCUT SCH (07:22)
[2022-01-02 07:33] LABS: Urine Creatinine Concentration 213.66 mg/dL
[2022-01-02 12:36] LABS: Blood Urea Nitrogen 30 mg/dL (6-24); CO2 Carbon Dioxide 25 mmol/L (22-32); Calcium 7.5 mg/dL (8.6-10.3); Chloride 104 mmol/L (101-111); Glucose 178 mg/dL (70-100); Sodium 135 mmol/L (135-145); eGFR CKD-EPI 41.4 (>60)
[2022-01-02 12:38] LABS: Anion Gap 6 mmol/L (2-11)
[2022-01-03] MEDS: cefTRIAXone 1 gm/50 mL D5W 1 GM/50 ML BAG IV SCH (04:55)
[2022-01-03] MEDS: Azithromycin 500 mg/250 ml NS 500 MG/250 ML BAG IVPB SCH (06:04)
[2022-01-03 06:36] LABS: ABS Lymphocytes 0.5 10^3/ul (1.0-4.8); ABS Monocytes 0.6 10^3/ul (0-0.8); ABS Neutrophils 16.3 10^3/ul (1.5-7.7); Hematocrit 40 % (42-52); Hemoglobin 13.6 g/dL (14.0-18.0); Lymphocyte % 2.6 %; Mean Corpuscular HGB Conc 34 g/dL (31-36); Mean Corpuscular Hemoglobin 32 pg (27-31); Mean Corpuscular Volume 95 fL (80-94); Platelet Count 317 10^3/uL (150-450); Red Blood Count 4.19 10^6 /uL (4.18-5.48); Red Cell Distribution Width 14 % (10-15); White Blood Count 17.4 10^3/uL (3.5-10.8)
[2022-01-03 06:37] LABS: INR 1.15 (0.86-1.15)
[2022-01-03 06:50] LABS: Calcium 7.9 mg/dL (8.6-10.3); Magnesium 2.3 mg/dL (1.9-2.7); Potassium 3.9 mmol/L (3.5-5.0); eGFR CKD-EPI 56.9 (>60)
[2022-01-03] MEDS ORDERED: Albuterol/Ipratropium NEB.SOL (2.5/0.5 MG) 3 ML NEB.SOLN INH PRN (08:44)
[2022-01-03] MEDS: Enoxaparin 40 MG/0.4 ML SYR SUBCUT SCH (08:45)
[2022-01-03] MEDS: Albuterol/Ipratropium NEB.SOL (2.5/0.5 MG) 3 ML NEB.SOLN INH SCH ×2 (14:03→19:49)
[2022-01-03] MEDS: Mometasone/Formoter 200/5 MDI INH SCH ×2 (19:56→20:02)
[2022-01-04] MEDS: cefTRIAXone 1 gm/50 mL D5W 1 GM/50 ML BAG IV SCH (05:18)
[2022-01-04] MEDS: Azithromycin 500 mg/250 ml NS 500 MG/250 ML BAG IVPB SCH (06:16)
[2022-01-04 06:45] LABS: ABS Lymphocytes 0.5 10^3/ul (1.0-4.8); ABS Monocytes 0.7 10^3/ul (0-0.8); ABS Neutrophils 15.7 10^3/ul (1.5-7.7); Hematocrit 39 % (42-52); Mean Corpuscular HGB Conc 34 g/dL (31-36); Mean Corpuscular Hemoglobin 32 pg (27-31); Mean Corpuscular Volume 94 fL (80-94); Mean Platelet Volume 7.7 fL (7.4-10.4); Platelet Count 400 10^3/uL (150-450); Red Blood Count 4.08 10^6 /uL (4.18-5.48); Red Cell Distribution Width 14 % (10-15); White Blood Count 16.9 10^3/uL (3.5-10.8)
[2022-01-04 07:00] LABS: Calcium 8.1 mg/dL (8.6-10.3); Potassium 4.4 mmol/L (3.5-5.0); eGFR CKD-EPI 56.9 (>60)
[2022-01-04] MEDS ORDERED: Albuterol/Ipratropium NEB.SOL (2.5/0.5 MG) 3 ML NEB.SOLN INH SCH (07:00)
[2022-01-04] MEDS: Enoxaparin 40 MG/0.4 ML SYR SUBCUT SCH (08:23)
[2022-01-04] MEDS ORDERED: Albuterol/Ipratropium NEB.SOL (2.5/0.5 MG) 3 ML NEB.SOLN INH PRN (08:48)
[2022-01-04] MEDS ORDERED: Albuterol HFA INHALER 8 gm MDI INH PRN (08:49)
[2022-01-04] MEDS: Mometasone/Formoter 200/5 MDI INH SCH ×2 (08:52→20:42)
[2022-01-04] MEDS ORDERED: Albuterol HFA INHALER 8 gm MDI INH SCH (09:00)
[2022-01-04] MEDS: Albuterol HFA INHALER 8 gm MDI INH SCH ×2 (13:05→20:42)
[2022-01-04 13:33] VITALS: BP 131/46
[2022-01-05] MEDS: Albuterol HFA INHALER 8 gm MDI INH SCH (07:57)
[2022-01-05] MEDS: Mometasone/Formoter 200/5 MDI INH SCH (07:57)
== END 2022-01-04 09:19 | disposition home or self-care (01) | DRG 720 ==
LOC: ED 01:27 → SUATTDRO 05:42 → EDHOLD 05:42 → MEDTELE 09:39
PROVIDERS: ADMIT Internal Medicine; ATTEND Internal Medicine

== ENCOUNTER 2024-10-02 11:32 | Observation (INO) ==
[2024-10-02 12:11] LABS: ABS Basophils 0.1 10^3/uL (0.0-0.1); ABS Eosinophils 0.2 10^3/uL (0.0-0.5); ABS Lymphocytes 1.1 10^3/uL (1.0-4.8); ABS Monocytes 0.5 10^3/uL (0.0-1.1); ABS Nucleated RBC 0.01 10^3/ul; Eosinophil % 1.4 %; Hematocrit 38.7 % (38-53); Hemoglobin 13.4 g/dL (13.2-16.3); Lymphocyte % 9.9 %; Mean Corpuscular Hemoglobin 34.9 pg (27-33); Mean Corpuscular Hgb Conc 34.7 g/dL (31-36); Mean Corpuscular Volume 100.6 fL (80-97); Mean Platelet Volume 6.8 fL (7.5-11.2); Nucleated Red Blood Cells % 0.1 %/100WBC (0.0-0.8); Platelet Count 692 10^3/uL (150-450); Red Blood Count 3.84 10^6/uL (4.06-5.63); Red Cell Distribution Width 12.8 % (12-17); White Blood Count 10.8 10^3/uL (3.6-10.2)
[2024-10-02 12:16] LABS: Activated Partial Thrombo Time 31.1 seconds (26.0-38.0); INR 1.09 (0.85-1.14)
[2024-10-02] MEDS: Iodixanol 320 (CONTRAST) 100 ML SDV IV ONE (12:28)
[2024-10-02 13:03] LABS: Albumin 4.4 g/dL (3.5-5.7); Albumin/Globulin Ratio 1.9 (1-3); Calcium 9.5 mg/dL (8.6-10.3); Creatinine, Serum 1.51 mg/dL (0.67-1.17); Direct Bilirubin 0.1 mg/dL (0.03-0.18); Globulin 2.3 g/dL (2-4); HDL Cholesterol 48.2 mg/dL; Indirect Bilirubin 0.9 mg/dL (0.3-1.0); Potassium 5.2 mmol/L (3.5-5.0); Total Protein 6.7 g/dL (6.4-8.9); eGFR CKD-EPI 45.8 (>60)
[2024-10-02 16:57] LABS: Urine Appearance Turbid; Urine Bilirubin Negative (Negative); Urine Blood Trace (Negative); Urine Color Light-Yellow; Urine Glucose Negative (Negative); Urine Ketones Negative (Negative); Urine Nitrite Negative (Negative); Urine Protein 1+ (>=30 mg/dL) (Negative); Urine Specific Gravity >1.050 (1.002-1.030); Urine Urobilinogen Negative (Negative); Urine pH 6.5 (5.0-8.0)
[2024-10-02 17:03] LABS: Urine Bacteria Absent /HPF (Absent); Urine Red Blood Cell 3+(>10/hpf) /HPF (0-Trace); Urine White Blood Cell 3+(>20/hpf) /HPF (0-Trace)
[2024-10-02] MEDS: Lactated Ringers 1000 ml BAG 1,000 ML IV ONE (18:40)
[2024-10-02] MEDS: cefTRIAXone 1 gm/50 mL D5W 1 GM/50 ML BAG IV SCH (18:45)
[2024-10-03 05:17] LABS: ABS Basophils 0.1 10^3/uL (0.0-0.1); ABS Eosinophils 0.2 10^3/uL (0.0-0.5); ABS Lymphocytes 1.1 10^3/uL (1.0-4.8); ABS Monocytes 0.7 10^3/uL (0.0-1.1); ABS Neutrophils 12.4 10^3/uL (1.5-7.6); ABS Nucleated RBC 0.01 10^3/ul; Eosinophil % 1.1 %; Hematocrit 33.7 % (38-53); Hemoglobin 11.8 g/dL (13.2-16.3); Lymphocyte % 7.4 %; Mean Corpuscular Hgb Conc 35.1 g/dL (31-36); Mean Corpuscular Volume 99.6 fL (80-97); Mean Platelet Volume 6.7 fL (7.5-11.2); Platelet Count 552 10^3/uL (150-450); Red Blood Count 3.38 10^6/uL (4.06-5.63); Red Cell Distribution Width 12.7 % (12-17); White Blood Count 14.5 10^3/uL (3.6-10.2)
[2024-10-03 05:54] LABS: Calcium 8.5 mg/dL (8.6-10.3); Creatinine, Serum 1.33 mg/dL (0.67-1.17); Magnesium 1.7 mg/dL (1.9-2.7); Potassium 4.7 mmol/L (3.5-5.0); eGFR CKD-EPI 53.4 (>60)
[2024-10-03] MEDS: Magnesium Sulfate IV 1GM/100ML 1 GM/100 ML BAG IV ONE (08:18)
[2024-10-03] MEDS: Magnesium Sulfate 2 gm BAG 2 GM/50 ML BAG IVPB ONE (10:19)
[2024-10-03] MEDS ORDERED: Albuterol HFA INHALER 8 gm MDI INH PRN (10:34)
[2024-10-03] MEDS: SPIRIVA Respimat (tiotropium) 2.5 mcg/inh Inhaler INH SCH (17:45)
[2024-10-04] MEDS: Magnesium Sulfate 2 gm BAG 2 GM/50 ML BAG IVPB ONE (08:29)
[2024-10-04] MEDS: Magnesium Sulfate IV 1GM/100ML 1 GM/100 ML BAG IV ONE (09:32)
[2024-10-04] MEDS: Sulfur Hexaflouride MICROSPHR 25 MG VIAL IV PRN (11:04)
[2024-10-04 13:50] VITALS: BP 139/59
== END 2024-10-04 17:35 | disposition home or self-care (01) ==
LOC: ED 11:32 → EDHOLD 11:32 → SUATTDRO 15:03 → MEDTELE 10-03 08:04
PROVIDERS: ADMIT Internal Medicine; ATTEND Internal Medicine